=== PATIENT | female | born 1970 | race African-American/Black ===

== ENCOUNTER → 2018-10-14 08:44 | Outpatient (CLI) | payer MEDICARE | END | disposition home or self-care (01) | LOC: D.CT 09-16 09:00 | DX: N18.6 End stage renal disease (principal); Z99.2 Dependence on renal dialysis ==

== ENCOUNTER → 2018-12-09 10:57 | Outpatient (CLI) | payer MEDICARE | END | disposition home or self-care (01) | LOC: D.CT 12-06 10:45 | PROVIDERS: ATTEND Surgery | DX: N18.6 End stage renal disease (principal); Z99.2 Dependence on renal dialysis ==

== ENCOUNTER 2018-12-30 10:17 | Outpatient (CLI) | payer MEDICARE, MEDICAID ==
[~2018-12-30] VITALS: Ht 162.6 cm; Wt 95.5 kg
--- NOTE | ~2018-12-30 | HEMODYNAMI ---
PATIENT:CARA GAMA MEDICAL RECORD: [id number] : 70 LOCATION:[facility] ADMISSION DATE: 12/30/18 Generatedon:12/30/201816:02 Patient name: CARA GAMA Patient #: [id number] SSN: D OB: 1970 Date of study: 12/30/2018 Page: Of Hemodynamic Procedure Report Patient Data Patient Demographics Procedure consent was obtained First Name: CARA Gender: Female Last Name: NATAN : 1970 Patient #: [id number] Age: 48 year(s) Race: Black Additional ID: [id number] Contact details Address: [address] [place] [address] State: [place] City: [place] Zip code: [address] Past Medical History Allergies: No known allergies Admission Admission Data Admission Date: 12/30/2018 Admission Time: 10:17 Procedure Procedure Types Cath Procedure Peripheral Cath Diagnostic Procedure Abd/Extremity Extremities Bilat Upper Extremity Art Venography Extremity Bilat Venogram Lower Ext Procedure Description Procedure Date Procedure Date: 12/30/2018 Procedure Start Time: 13:15 Procedure End Time: 16:02 Procedure Staff Name Function Guillaume Howard MD Performing Physician Mk Wade RT Monitor RAGHAV KINNEY RT Scrub Chema Looney RT Scrub Jaymie Rubio RN Nurse Procedure Data Cath Procedure Fluoroscopy Diagnostic fluoroscopy Total fluoroscopy Time: time: 44.3 min 44.3 min Diagnostic fluoroscopy Total fluoroscopy dose: dose: 1504 mGy 1504 mGy Contrast Material Contrast Material Type Amount (ml) Isovue 300 125 Diagnostic catheters Device Type Used For End Catheter Placement Merit Impress Matson Abdominal 5Fr 125CM catheter aortogram ([id number]) Merit Impress KA2 5Fr Ventriculography 65CM catheter (42448YC4) Procedure Medications Medication Administration Route Dosage Heparin Flush Bag added to field 3 bags (1000units/500ml NS) Lidocaine 1% added to field 20 Versed I.V. 1 mg Fentanyl I.V. 50 mcg Benadryl I.V. 25 mg Ancef (1Gm/50ml NS) I.V.P.B 1 g Versed I.V. 1 mg Fentanyl I.V. 50 mcg Heparin Bolus I.V. 5000 units Versed I.V. 1 mg Fentanyl I.V. 50 mcg Heparin Bolus I.V. 5000 units Versed I.V. 1 mg Fentanyl I.V. 50 mcg Hemodynamics Rest Heart Rate: 64 (bpm) Snapshots Pre Cath Intra NCS Post Cath Vital Signs Time Heart Resp SPO2 etCO2 NIBP (mmHg) Rhythm Pain Sedation Rate (ipm) (%) (mmHg) Status Level (bpm) 12:37:37 67 18 0 104/67(88) NSR 0 (11) 10(A) , No pain 12:41:41 65 28 100 29.4 107/85(102) NSR 0 (11) 10(A) , No pain 12:45:44 68 12 21.1 No Cuff NSR 0 (11) 10(A) , No pain 12:48:51 67 20 30.9 105/56(91) NSR 0 (11) 10(A) , No pain 12:52:56 66 14 100 28.6 116/54(81) NSR 0 (11) 10(A) , No pain 12:57:10 66 17 100 29.4 125/44(79) NSR 0 (11) 10(A) , No pain 13:01:26 64 15 100 30.8 109/44(77) NSR 0 (11) 9(A) , No pain 13:05:32 65 20 100 30.1 122/62(88) NSR 0 (11) 9(A) , No pain 13:09:40 69 20 100 25.6 114/61(81) NSR 0 (11) 9(A) , No pain 13:13:50 70 18 100 27.1 112/51(79) NSR 0 (11) 8(A) , No pain 13:18:00 72 13 100 32.4 107/51(81) NSR 0 (11) 8(A) , No pain 13:22:08 70 14 100 33.9 108/50(71) NSR 0 (11) 8(A) , No pain 13:26:17 70 14 100 33.1 105/50(78) NSR 0 (11) 8(A) , No pain 13:30:29 70 16 100 30.1 110/42(67) NSR 0 (11) 8(A) , No pain 13:34:44 71 13 100 26.3 114/30(81) NSR 0 (11) 8(A) , No pain 13:38:57 71 12 100 31.6 110/47(78) NSR 0 (11) 8(A) , No pain 13:43:11 69 16 100 30.1 97/38(63) NSR 0 (11) 8(A) , No pain 13:47:13 87 17 100 27.8 108/55(71) NSR 0 (11) 8(A) , No pain 13:51:27 69 19 100 26.3 113/35(70) NSR 0 (11) 8(A) , No pain 13:55:43 75 11 100 30.1 98/28(61) NSR 0 (11) 8(A) , No pain 13:59:51 67 18 100 33.1 89/47(71) NSR 0 (11) 8(A) , No pain 14:03:53 64 16 100 27.8 107/53(91) NSR 0 (11) 8(A) , No pain 14:08:52 68 17 100 27.8 Measuring NSR 0 (11) 8(A) , No pain 14:09:16 69 14 100 28.6 98/41(76) NSR 0 (11) 8(A) , No pain 14:13:24 65 11 100 31.6 103/46(83) NSR 0 (11) 8(A) , No pain 14:17:32 67 14 100 29.3 100/51(84) NSR 0 (11) 8(A) , No pain 14:21:40 67 16 100 27.8 108/47(79) NSR 0 (11) 8(A) , No pain 14:25:52 67 18 100 28.6 106/47(73) NSR 0 (11) 8(A) , No pain 14:30:02 66 15 100 29.3 111/50(79) NSR 0 (11) 8(A) , No pain 14:34:16 66 16 100 27 121/43(83) NSR 0 (11) 8(A) , No pain 14:38:32 64 14 100 28.6 117/45(86) NSR 0 (11) 8(A) , No pain 14:42:46 65 16 100 30.1 127/51(82) NSR 0 (11) 8(A) , No pain 14:47:04 65 13 100 30.1 125/47(83) NSR 0 (11) 8(A) , No pain 14:52:03 66 17 100 30.8 Measuring NSR 0 (11) 8(A) , No pain 14:52:36 67 14 100 29.3 120/45(73) NSR 0 (11) 8(A) , No pain 14:56:49 66 14 100 27.8 123/52(81) NSR 0 (11) 8(A) , No pain 15:01:05 65 15 100 32.3 108/53(87) NSR 0 (11) 8(A) , No pain 15:05:18 64 13 100 30.8 117/45(89) NSR 0 (11) 8(A) , No pain 15:09:34 67 15 100 30.1 110/47(76) NSR 0 (11) 8(A) , No pain 15:13:45 64 10 100 26.3 111/52(74) NSR 0 (11) 8(A) , No pain 15:17:57 63 15 100 28.6 118/47(82) NSR 0 (11) 8(A) , No pain 15:22:14 64 14 100 28.6 109/46(79) NSR 0 (11) 8(A) , No pain 15:26:23 66 18 29.3 111/54(80) NSR 0 (11) 8(A) , No pain 15:30:37 63 15 29.3 112/44(67) NSR 0 (11) 8(A) , No pain 15:34:49 65 14 100 29.3 114/52(79) NSR 0 (11) 8(A) , No pain 15:38:55 65 18 100 24.8 130/74(93) NSR 0 (11) 8(A) , No pain 15:43:13 64 17 100 31.6 122/52(81) NSR 0 (11) 8(A) , No pain 15:47:33 65 16 100 24.8 111/29(74) NSR 0 (11) 8(A) , No pain 15:51:45 66 14 100 31.6 108/51(74) NSR 0 (11) 8(A) , No pain 15:55:55 32.3 106/55(79) NSR 0 (11) 8(A) , No pain 16:00:25 0 No Cuff NSR 0 (11) 8(A) , No pain Medications Time Medication Route Dose Verified Delivered Reason Notes Eff ectiveness by by 12:48:21 Heparin Flush added 3 Guillaume Galaviz used for Bag to bags Anita Howard procedure (1000units/500ml field MD [place] NS) 12:48:33 Lidocaine 1% added 20ml Guillaume Galaviz for local to vial Anita Howard anesthetic field MD [place] 13:00:02 Benadryl I.V. 25 mg Guillaume Coon for Anita Rubio RN sedation 13:09:49 Versed I.V. 1 mg Guillaume Coon for Anita Rubio RN sedation 13:10:01 Fentanyl I.V. 50 Guillaume Coon for [facility] Anita Rubio RN sedation 13:12:23 Ancef (1Gm/50ml I.V.P.B 1 g Guillaume Jaymie Per NS) Anita Rubio RN physician 13:33:17 Versed I.V. 1 mg Guillaume Coon for Anita Rubio RN sedation 13:33:26 Fentanyl I.V. 50 Guillaume Jaymie for mcg Anita Rubio RN sedation 13:36:11 Heparin Bolus I.V. 5000 Guillaume Jaymie Per units Anita Rubio RN physician 14:50:44 Versed I.V. 1 mg Guillaume Riojasody for Anita Mosquerar RN sedation 14:50:56 Fentanyl I.V. 50 Guillaume Jaymie for mcg Anita Mosquerar RN sedation 15:09:49 Heparin Bolus I.V. 5000 Guillaume Jaymie Per units Anita Rubio RN physician 15:33:12 Versed I.V. 1 mg Guillaume Riojasody for Anita Rubio RN sedation 15:33:23 Fentanyl I.V. 50 Guillaume Coon for [facility] Anita Rubio RN sedation MD Procedure Log Time Note 12:35:51 Chema Stephenjil RT (R) (CV) sent for patient. Start room use. 12:36:02 Time tracking: Regular hours (M-F 7:00 - 5:00) 12:36:07 Plan of Care:Hemodynamics will remain stable., Cardiac rhythm will remain stable., Comfort level will be maintained., Respiratory function will remain adequate., Patient/ family verbilizes understanding of procedure., Procedure tolerated without complication., Recovers from procedure without complications.. 12:36:11 Use device set IR Diagnostic 12:36:12 ACIST Syringe (96212) opened to sterile field. 12:36:12 ACIST Hand Control (37379) opened to sterile field. 12:36:12 ACIST Manifold (04266) opened to sterile field. 12:36:13 Bag Decanter (2002S) opened to sterile field. 12:36:13 Sterile Angiographic Pack opened to sterile field. 12:36:16 Tegaderm 4 x 4 (1626W) opened to sterile field. 12:36:24 Patient received from Outpatients to IR Alert and oriented. Tansferred to table in Supine position. 12:36:25 Correct patient and procedure confirmed by team. 12:36:28 Signed procedure consent form obtained from patient. 12:36:30 ECG and BP/O2 sat monitors applied to patient. 12:36:30 Vital chart was started 12:36:31 Baseline sample Acquired. 12:36:32 Full Disclosure recording started 12:36:33 - 12:36:36 H&P Date Dictated: 12/30/2018 H&P Addendum completed by physician on day of procedure. (MUST COMPLETE FOR ALL OUTPATIENTS). 12:36:36 Pre-procedure instructions explained to patient. 12:36:37 Pre-op teaching completed and patient verbalized understanding. 12:36:38 Family in waiting room. 12:36:40 Patient NPO since Midnight. 12:36:52 ----Pre-sedation anethsthesia assessment.---- 12:36:55 Previous problem with sedation/anesthesia? No ? 12:36:56 Snore? Yes 12:37:00 Patient diabetic? Yes. 12:37:02 If diabetic: On Metformin? No 12:37:04 Sleep apnea? No 12:37:06 Deviated septum? No 12:37:07 Opens mouth fully? Yes 12:37:09 Sticks out tongue? Yes 12:37:15 Airway obstruction? No ? 12:37:16 Dentures? No ? 12:37:17 - 12:37:21 Pre procedure: right dorsailis pedis pulse Doppler 12:37:25 Pre procedure: right posterior tibial pulse Doppler 12:37:27 Sharps counted by scrub and verified by R.N. 12:37:28 Alarms reviewed by R. N. 12:37:33 Right groin area was prepped with chlora-prep and draped in sterile fashion 12:46:14 IV started by Jaymie Rubio RN inright wrist with a 22 gauge IV cathete r with 0.9% NaCl at KVO. 12:48:21 Heparin Flush Bag (1000units/500ml NS) 3 bags added to field was administered by Guillaume Howard MD; used for procedure; 12:48:22 Patient allergic to hydocodone. 12:48:33 Lidocaine 1% 20ml vial added to field was administered by Guillaume griffin MD; for local anesthetic; 12:49:25 Is the patient allergic to Iodine/contrast media? No. 12:50:32 Is patient on blood thinner?Yes has not had any for 4 days. 13:00:02 Benadryl 25 mg I.V. was administered by Jaymie Rubio RN; for sedation; 13:04:25 SHEATH 5FR Buna (LJS898) opened to sterile field. 13:05:15 BENTSON 145cm wire (R21412) opened to sterile field. 13:05:29 Physician arrived 13:05:30 --------ALL STOP TIME OUT------ 13:05:31 Final Timeout: patient, procedure, and site verified with staff and physician. All members of the team are in agreement. 13:05:38 Right groin site verified by team. 13:06:00 Sedation plan: IV Moderate Sedation Medication:Versed, Fentanyl, Lidocaine 13:07:39 Procedure started. 13:09:49 Versed 1 mg I.V. was administered by Jaymie Rubio RN; for sedation; 13:10:01 Fentanyl 50 mcg I.V. was administered by Jaymie Rubio RN; for sedation ; 13:12:23 Ancef (1Gm/50ml NS) 1 g I.V.P.B was administered by Jaymie Rubio RN; Per physician; 13:15:00 Local anesthetic to right femoral vein with Lidocaine 1% by Guillaume Howard MD.INITIAL ACCESS ONLY 13:16:09 COOK SHEATH 6FR RAABE 70CM (X47309) opened to sterile field. 13:16:29 Trailblazer 0.035 90cm catheter (ASC-035-090) opened to sterile field. 13:16:29 MONSON 260 wire (Y56725) opened to sterile field. 13:19:46 AMPLATZ Super Stiff 75cm wire ([id number]) opened to sterile field. 13:20:58 GLIDE WIRE .035 180CM STRAIGHT (MO9616) opened to sterile field. 13:22:59 Access obtained with 4Fr micropunture. 13:24:05 A 5 [place] sheath is placed in the right femeral vein. 13:24:46 0.35 straight glidewire wire advanced along with the trailblazer cath. 13:26:02 MAGIC TORQUE 180cm 0.035 wire ([id number]) opened to sterile field. 13:27:51 ROADRUNNER .035 145 glide wire (T74860) opened to sterile field. 13:30:51 The glidewire is removed and the roadrunner wire is used to advance the trailblazer into the vena cava. 13:33:17 Versed 1 mg I.V. was administered by Jaymie Ramiro RN; for sedation; 13:33:26 Fentanyl 50 mcg I.V. was administered by Jaymie Rubio RN; for sedation ; 13:34:13 INFLATOR BasixTOUCH (ZB6698) opened to sterile field. 13:36:11 Heparin Bolus 5000 units I.V. was administered by Jaymie Rubio RN; Per physician; 13:36:45 Inflate balloon Inflation number: 1 A Evercross 6 x 100 x 135 Balloon ([id number]) was prepped and advanced across the Undefined lesion in the iliac vein, then inflated to 8 MARY for 0:30 (min:sec). 13:37:03 AMPLATZ Super stiff Straight 260cm wire ([id number]) opened to sterile field. 13:44:59 The 5 [place] sheath is exchanged for the 6 [place] 70 cm sheath. 13:59:28 the trailblazer and bentson wire are then advanced into the superior vena cava. 14:01:23 CXI Catheter 90cm (E30321) opened to sterile field. 14:02:05 The trailblazer is replaced with a cxi 90 cm cath. 14:06:47 Micropuncture VSI 4FR kit opened to sterile field. 14:07:08 Local anesthetic to right femoral artery with Lidocaine 1% by Guillaume Howard MD.ADDITIONAL ACCESS 14:09:54 the 4 [place] micro stick system is used to access the rt femeral artery and the 5 [place] sheath is inserted into the right femeral artery. 14:10:54 A [facility] Matson 5Fr 125CM catheter ([id number]) was advanced over the wire and used for superior thoracic vessels arteriogram. 14:22:59 an arteriogram of entire right arm is made. 14:33:16 An arteriogram of the entire left arm is made. 14:33:49 EXOSEAL 5Fr (EX500) opened to sterile field. 14:36:39 The 5 cost[place]ican arterial sheath is removed and the 5 cost[place]ican exoseal is deployed, pressure applied to hemostasis. 14:50:44 Versed 1 mg I.V. was administered by Jaymie Rubio RN; for sedation; 14:50:56 Fentanyl 50 mcg I.V. was administered by Jaymie Rubio RN; for sedation ; 14:57:07 Additional access is need for both arms therefore both arms are prepped and drapped in sterile fashion. 14:58:44 additional lidocaine is administed at local site by Dr. Howard. 1 % lidocaine is used to the left arm. 15:00:23 the 4 [place] micro puncture set is used to access the left brachial vein. 15:01:35 SHEATH 6FR Destination (RSR01) opened to sterile field and used to further access the left arm. 15:03:13 ROADRUNNER FIRM 260CM glide wire (Q16379) opened to sterile field. 15:04:14 A [place] Impress KA2 5Fr 65CM catheter (45588YO8) was advanced over the wire and used for Venography. 15:09:17 An injection is made in the SVC. 15:09:49 Heparin Bolus 5000 units I.V. was administered by Jaymie Rubio RN; Per physician; 15:09:58 The K2 cath is removed and replaced with the 6x60cm evercross balloon. The balloon was not inflated and removed. 15:16:26 GLIDE WIRE MERIT Angled 260cm ([id number]) opened to sterile field. 15:33:12 Versed 1 mg I.V. was administered by Jaymie Rubio RN; for sedation; 15:33:23 Fentanyl 50 mcg I.V. was administered by Jaymie Rubio RN; for sedation ; 15:34:35 the 6 costa [place]ican destination sheath is removed from the left brachial vein and pressure held until hemostatis achieved. 15:35:22 The venous sheath in the right groin is exchanged for a 7 cost[place]ican brite tip 15:35:43 Cordis 7Fr BRITE TIP 11cm sheath opened to sterile field. 15:40:01 Balloon advanced to the RIGHT ILIAC VEIN AND IT IS A 7 GABONESE [id number] BALLOON BY ELSIE. INFLATED TO 10ATMS FOR 60 SECONDS. 15:43:10 A SECOND INFLATION IS MADE WITH SAME BALLOON 10ATMS FOR 30 SECONDS. 15:44:10 Everything is removed and pressure is held until hemostasis. 15:44:17 Procedure ended.(Physican Out) 15:48:46 Inflate balloon Inflation number: 1 A Evercross 12 x 40 x 135 ([id number]) was prepped and advanced across the Undefined1, then inflated. 15:58:36 Fluoroscopy time 44.30 minutes. :58:44 Fluoroscopy dose: 1504 mGy 15:58:44 Flurop Dose total: 1504 15:58:55 Contrast amount:Isovue 300 125ml. 15:58:59 Sharps counted by scrub and verified by R.N. 15:59:34 Post-op/insertion site Right Femoral vein and artery dressed using a 4 x 4 and Tegaderm. 16:00:56 post-op /insertion site left brachial vein dressed using a 4x4 and tegaderm. 16:01:37 Post Procedure Pulses reassessed and unchanged 16:01:42 Post procedure instruction explained to patient.Patient verbalizes understanding. 16:01:44 Patient needs reinforcement of post procedure teaching. 16:01:47 Procedure and supply charges have been captured, reviewed, submitted an d are correct. 16:01:51 See physician's report for complete and final results. 16:01:57 Report given to Outpatients. 16:02:04 Patient transfered to Outpatients with Stretcher. 16:02:11 Procedure ended. 16:02:11 Full Disclosure recording stopped 16:02:46 Vital chart was stopped Intervention Summary Intervention Notes Time ActionType Lesion and Equipment Used Action# Pressure Duration Attributes 13:36:45 Inflate Undefined Evercross 6 x 1 0 00:00 balloon lesion 1 on 100 x 135 undefined Balloon graft 1 ([id number]) 15:48:46 Inflate Undefined1 Evercross 12 x 1 0 00:00 balloon 40 x 135 ([id number]) Device Usage Item Name Manufacture Quantity Catalog Number Hospital Part Current Minimal Lot# / Charge Number Stock Stock Serial# Code ACIST Syringe Acist 1 31393 815676 705676 516693 20 (92287) Medical Systems Inc ACIST Hand Acist 1 45700 653388 198003 143714 5 Control (09609) Medical Systems Inc ACIST Manifold Acist 1 30983 988002 490576 053267 5 (22022) Medical Systems Inc Bag Decanter Microtek 1 2001S 557933 83732 318023 5 (2001S) Medical Inc. Sterile Cardinal 1 [id number] 293033 197240 5 Angiographic Health Pack Tegaderm 4 x 4 3M 1 1626W 703012 115258 233161 5 (1626W) SHEATH 5FR Terumo 1 IUH561 136301 394709 230701 5 Buna (QGY951) BENTSON 145cm Cook Medical 1 W02865 350531 836870 5 wire (C91741) COOK SHEATH 6FR Cook Medical 1 U12660 755393 55251 688501 1 [id number] RAABE 70CM (C07983) Trailblazer Medtronic 1 ASC-035-090 963158 7748538 861787 5 0.035 90cm catheter (ASC-035-090) MONSON 260 wire Cook Medical 1 S83123 739535 20432 621467 5 3175750 (N87131) AMPLATZ Super [place] 1 [id number] 937568 384981 912141 5 [id number] Stiff 75cm wire Scientific ([id number]) GLIDE WIRE .035 Terumo 1 HB6346 005815 169265 5 180CM STRAIGHT (SC2107) MAGIC TORQUE [place] 1 [id number] 331937 369481 784194 1 180cm 0.035 Scientific wire ([id number]) ROADRUNNER .035 Cook Medical 1 L79808 081105 138319 062037 5 7623032 145 glide wire (V10474) INFLATOR Merit 1 UP8777 431692 872496 362745 5 BasixTOGlio Medical (LG3440) Evercross 6 x Medtronic 1 [id number] 326463 860374 499191 5 100 x 135 Balloon ([id number]) AMPLATZ Super [place] 1 [id number] 294328 44588 788967 5 [id number] stiff Straight Scientific 260cm wire ([id number]) CXI Catheter Cook Medical 1 R41776 650755 859098 707342 5 2523017 90cm (H47866) Micropuncture VSI VASCULAR 1 7266V 916714 557080 5 VSI 4FR kit SOLUTIONS Merit Impress Merit 1 [id number] 431024 707139 882177 5 Matson 5Fr Medical 125CM catheter ([id number]) EXOSEAL 5Fr Cardinal 1 EX500 440889 119121 449306 10 [id number] (EX500) Health SHEATH 6FR Terumo 1 RSR01 983417 73615 030287 5 Destination (RSR01) ROADRUNNER FIRM Cook Medical 1 W17871 488075 294398 5 260CM glide wire (Q74154) Merit Impress Merit 1 27788YO7 220538 082020 5 KA2 5Fr 65CM Medical catheter ([id number]) GLIDE WIRE Merit 1 [id number] 077742 244013 708111 5 [id number] MERIT Angled Medical 260cm ([id number]) Cordis 7Fr Cardinal 1 727567N 471757 523841 5 BRITE TIP 11cm Health sheath Evercross 12 x Medtronic 1 [id number] 832377 211846 567568 5 [id number] 40 x 135 ([id number]) Signature Audit [place] Stage Time Signature Unsigned Intra-Procedure 12/30/2018 Mk 4:02:41 PM Sheri CHENG(Tai)(CV) Signatures Monitor : Mk Signature : Sheri RT Date : Time : [address] [address]
[2018-12-30 10:53] LABS: ANION GAP 24.2 mmol/L (8-16); CALCIUM 9.8 mg/dL (8.5-10.1); CARBON DIOXIDE 22.8 mmol/L (21.0-32.0)
[2018-12-30 11:20] LABS: BASOPHILS 0.5 % (0-2); EOSINOPHILS 0 % (0-7); HEMATOCRIT 34.3 % (36.0-48.0); HEMOGLOBIN 11.7 g/dL (12-16); MCH 31.9 pg (26.0-34.0); MCHC 34.1 g/dL (31.0-37.0); MCV 93.5 fL (80.0-100.0); MEAN PLATELET VOLUME 10.7 fL (7.4-10.4); MONOCYTES 0 % (2-11); NEUTROPHILS 8.5 % (40-80); PLATELET COUNT 146 10x3/uL (130-400); RBC 3.67 10x6/uL (4.00-5.40); RDW 15.2 % (11.5-14.5); WBC 5.7 10x3/uL (4.8-10.8)
[2018-12-30] MEDS ORDERED: SENSIPAR30 MG PO (11:34)
[2018-12-30] MEDS ORDERED: GLYBURIDE2.5 MG PO (11:35)
[2018-12-30] MEDS ORDERED: RENVELA800 MG PO (11:36)
[2018-12-30] MEDS ORDERED: MIDODRINE HCL2.5 MG PO (11:36)
[2018-12-30 11:40] LABS: INR 1.17 (0.85-1.17); PROTIME 14.3 SECONDS (11.6-15.0)
[2018-12-30 11:42] VITALS: BP 89/53; Ht 162.6 cm; Wt 95.5 kg
--- NOTE | 2018-12-30 16:33 | NUR ---
1600. TO ROOM FLAT HOB ELEVATED 5 DEGREES. LEGS STRAIGHT. SRG TO RIGHT GROIN CLEAN DRY AND INTACT, SOFT WITH TEGREDERM DRESSING OVER SITE WITH 2X2 UNDER TEGREDERM.DOPPLER PULSES. B/P TO LOWER RIGHT LEG. DRESSING TO LEFT UPPER ARM WITH A MAGDALENE SIZE SPOT OF BLOOD. AREA SOFT WITH 2X2 COVERED WITH TEGREDERM DRESSING. PT FALLS TO SLEEP EASILY. IV IN RIGHT ANT WRIST. FLUSHED WELL. REFUSED WATER. BP HIGH REAJUSTED CUFF AND B/P WNL OF PRE OP. INSTRUCTED PT THAT SHE WILL BE HERE UNTIL 7PM. NO FAMILY AT BEDSIDE.
--- NOTE | 2018-12-30 16:37 | NUR ---
1620 FAMILY MEMEBER AT BEDSIDE. NO CHANGE IN DRESSING OR VS
--- NOTE | 2018-12-30 18:21 | NUR ---
1800PT C/O BACK PAIN. REFUSED TO TURN ON SIDE. OFFERED PT WATER OR SOMETHING TO EAT. PT REFUSED. PT DIDNT REALIZE SHE HAD TO STAY UNTIL 7PM. PT LIVES A HOUR AND A HALF AWAY. SCANT AMT OF DRAINAGE TO RT GROIN. SMALL AMT OF DRAINAGE TO LEFT UPPER ARM.
--- NOTE | 2018-12-30 18:44 | NUR ---
184 IV REMOVED TO RIGHT ANT WRIST. PILLOWS UNDER KNEES TO HELP WITH BACK PAIN.SCANT AMT OF DRAINAGE TO LEFT GROIN.
== END 2018-12-30 19:05 | disposition home or self-care (01) ==
LOC: D.SP 10:17 → D.RAD 13:00 → D.SP 13:00
PROVIDERS: ATTEND Radiology Diagnostic Radiology
DX: I87.1 Compression of vein (principal); N18.6 End stage renal disease

== ENCOUNTER → 2019-01-27 14:30 | Outpatient (CLI) | payer MEDICARE ==
[2018-12-30 11:42] VITALS: BMI 36.1
[~2019-01-27 14:30] MED LIST: GLYBURIDE2.5 MG PO; MIDODRINE HCL2.5 MG PO; RENVELA800 MG PO; SENSIPAR30 MG PO
== END | disposition home or self-care (01) ==
LOC: D.US 14:30
PROVIDERS: ATTEND Surgery
DX: E04.1 Nontoxic single thyroid nodule (principal); R93.89 Abnormal findings on diagnostic imaging of other specified body structures

== ENCOUNTER 2019-02-21 06:37 | Day surgery (SDC) | payer MEDICARE ==
[~2019-02-21] VITALS: Ht 162.6 cm; Wt 93.2 kg
[2019-02-21 07:17] LABS: BASOPHILS 0.3 % (0-2); EOSINOPHILS 2.8 % (0-7); HEMATOCRIT 33.3 % (36.0-48.0); IMMATURE GRANULOCYTES 0.1 % (0-5); LYMPHOCYTES 17.5 % (15-50); MCV 93.8 fL (80.0-100.0); MEAN PLATELET VOLUME 10.1 fL (7.4-10.4); NEUTROPHILS 71.3 % (40-80); RBC 3.55 10x6/uL (4.00-5.40); RDW 13.9 % (11.5-14.5); WBC 7.7 10x3/uL (4.8-10.8)
[2019-02-21 07:23] LABS: PLATELET COUNT 188 10x3/uL (130-400)
[2019-02-21 07:56] LABS: ANION GAP 19.4 mmol/L (8-16); CALCIUM 9.6 mg/dL (8.5-10.1); CARBON DIOXIDE 22.9 mmol/L (21.0-32.0); CREATININE - SERUM 9.1 mg/dL (0.6-1.3); INR 1.23 (0.85-1.17); POTASSIUM - SERUM 4.3 mmol/L (3.5-5.1); PROTIME 14.9 SECONDS (11.6-15.0)
[2019-02-21 08:03] LABS: HCG SERUM NEGATIVE (NEGATIVE)
[2019-02-21 08:48] VITALS: BP 98/75
[2019-02-21 13:10] LABS: BASOPHILS 0.4 % (0-2); EOSINOPHILS 1.8 % (0-7); HEMATOCRIT 30.9 % (36.0-48.0); HEMOGLOBIN 10.2 g/dL (12-16); IMMATURE GRANULOCYTES 0.2 % (0-5); LYMPHOCYTES 27.2 % (15-50); MCH 31.3 pg (26.0-34.0); MCV 94.8 fL (80.0-100.0); MEAN PLATELET VOLUME 10.3 fL (7.4-10.4); MONOCYTES 8.5 % (2-11); NEUTROPHILS 61.9 % (40-80); PLATELET COUNT 171 10x3/uL (130-400); RBC 3.26 10x6/uL (4.00-5.40); RDW 14.1 % (11.5-14.5)
[2019-02-21 13:13] LABS: WBC 5.4 10x3/uL (4.8-10.8)
[2019-02-21] MEDS ORDERED: DILAUDID2 MG PO (17:03)
--- NOTE | 2019-02-21 17:25 | NUR ---
NO BRUIT OR THRILL TO NEW GRAFT IN RT GROIN. DR LAM NOTIFIED.
--- NOTE | 2019-02-21 17:38 | NUR ---
HEPARIN DRIP DOSE VERIFIED/ACKNOWLEDGED BY IRENE QUIROZ RN AT INITIATION
[2019-02-21 18:21] VITALS: BP 124/71
--- NOTE | 2019-02-21 18:35 | NUR ---
RECIVED FROM RR PER BED. TO ROOM 2133. IV TO LT SHOULDER WITH HEP AT 1000U/HR. HEMOSPLIT TO LT GROIN.
--- NOTE | 2019-02-21 19:30 | NUR ---
RECEIVED REPORT,WILL ASSUME CARE OF PT, PT DENIES ANY NEEDS, DRESSING TO L,[id number], BED IS LOW, SRX2, CALL LIGHT IN REACH, WILL CONTINUE PLAN OF CARE
[2019-02-21 20:00] VITALS: BP 99/55
[2019-02-22] VITALS: BP 102/53
--- NOTE | 2019-02-22 03:20 | NUR ---
SLEEPING, NO DISTRESS NOTICED, BED IS LOW, SRX2, CALL LIGHT IN REACH, FAMILY AT BEDSIDE, WILL CONTINUE PLAN OF CARE
[2019-02-22 04:00] VITALS: BP 84/44
[2019-02-22 05:47] LABS: BASOPHILS 0.1 % (0-2); EOSINOPHILS 1.2 % (0-7); HEMATOCRIT 29.6 % (36.0-48.0); HEMOGLOBIN 9.6 g/dL (12-16); IMMATURE GRANULOCYTES 0.1 % (0-5); MCH 30.6 pg (26.0-34.0); MCHC 32.4 g/dL (31.0-37.0); MCV 94.3 fL (80.0-100.0); MEAN PLATELET VOLUME 10.4 fL (7.4-10.4); MONOCYTES 8.1 % (2-11); NEUTROPHILS 77.5 % (40-80); PLATELET COUNT 186 10x3/uL (130-400); RBC 3.14 10x6/uL (4.00-5.40); RDW 14.2 % (11.5-14.5); WBC 6.7 10x3/uL (4.8-10.8)
[2019-02-22 05:54] LABS: APTT 66.3 SECONDS (22.8-39.4); INR 1.4 (0.85-1.17); PROTIME 16.6 SECONDS (11.6-15.0)
[2019-02-22 06:11] VITALS: BP 124/71; BMI 35.2
[2019-02-22 06:38] LABS: ANION GAP 22.4 mmol/L (8-16); CALCIUM 8.5 mg/dL (8.5-10.1); CARBON DIOXIDE 19.3 mmol/L (21.0-32.0); CREATININE - SERUM 10.4 mg/dL (0.6-1.3); POTASSIUM - SERUM 4.7 mmol/L (3.5-5.1)
--- NOTE | 2019-02-22 07:00 | NUR ---
RECEIVED REPORT. ASSUMED CARE OF PATIENT. RESTING WITH EYES CLOSED, EASILY AROUSED. RESP EVEN AND UNLABORED. NO DISTRESS. CALL LIGHT WITHIN REACH. RIGHT AV GRAFT IN THIGH WITH THRILL BUT UNABLE TO HEAR BRUIT. CONTINUES ON HEPARIN DRIP.
--- NOTE | 2019-02-22 08:33 | NUR ---
MEDICATIONS ENTERED DO NOT MATCH RECENT PRESCRIPTIONS FILLED. VERIFIED MEDICATIONS WITH PATIENT. PATIENT INSTRUCTED THE NEED TO GET UP AND AMBULATE THIS AM. PATIENT VERBALZIED UNDERSTANDING.
[2019-02-22 10:08] VITALS: BP 97/52
[2019-02-22 12:01] VITALS: Ht 162.6 cm; Wt 93.2 kg
--- NOTE | 2019-02-22 12:39 | NUR ---
HEPARIN DRIP OFF AT THIS TIME.
--- NOTE | 2019-02-22 14:25 | NUR ---
PATIENT LEFT UNIT VIA WHEELCHAIR FOR DIALYSIS AT THIS TIME. ON UNIT FOR ROUNDS. PATIENT IN NO DISTRESS UPON LEAVING UNIT.
--- NOTE | 2019-02-22 18:29 | NUR ---
PATIENT RETURNED FROM DIALYSIS. 1.5 LITERS REMOVED. PM MEDICATIONS ADMINISTERED. NO DISTRESS. SITTING TO SIDE OF BED AT THIS TIME.
--- NOTE | 2019-02-22 19:36 | NUR ---
RECEIVED REPORT, WILL ASSUME CARE OF PT, SITTING UP ON SIDE OF BED, DENIES ANY NEEDS, CALL LIGHT IN REACH, WILL CONTINUE PLAN OF CARE, FAMILY AT BEDSIDE
[2019-02-22 20:00] VITALS: BP 106/52
[2019-02-23] VITALS: BP 97/41
--- NOTE | 2019-02-23 03:18 | NUR ---
I have reviewed this patient and I concur with the Shift Assessment completed by the Licensed Practical Nurse today this shift.
[2019-02-23 04:00] VITALS: BP 84/42
--- NOTE | 2019-02-23 07:10 | NUR ---
REPORT RECEVIED FROM COOKER CASING AND PATIENT CARE ASSUMED. PATIENT LAYING IN BED ON LT SIDE WITH EYES CLOSED AND BREATHING EVENLY. PATIENT IS STABLE AND VSS. WILL CONTINUE WITH PLAN OF CARE. SR UP X 2 BED IN LOW POSITION AND CALL LIGHT IN REACH.
[2019-02-23 08:51] VITALS: BP 162/68
[2019-02-23 10:29] LABS: BASOPHILS 0.5 % (0-2); EOSINOPHILS 4.1 % (0-7); HEMATOCRIT 28.2 % (36.0-48.0); HEMOGLOBIN 9.1 g/dL (12-16); IMMATURE GRANULOCYTES 0.3 % (0-5); MCH 30.7 pg (26.0-34.0); MCHC 32.3 g/dL (31.0-37.0); MCV 95.3 fL (80.0-100.0); MEAN PLATELET VOLUME 10.2 fL (7.4-10.4); MONOCYTES 7.6 % (2-11); NEUTROPHILS 72.5 % (40-80); PLATELET COUNT 186 10x3/uL (130-400); RBC 2.96 10x6/uL (4.00-5.40); RDW 14.3 % (11.5-14.5); WBC 6.6 10x3/uL (4.8-10.8)
[2019-02-23 10:48] LABS: CALCIUM 9.1 mg/dL (8.5-10.1); CREATININE - SERUM 8.8 mg/dL (0.6-1.3)
[2019-02-23 10:51] LABS: ANION GAP 18.6 mmol/L (8-16); CARBON DIOXIDE 24.2 mmol/L (21.0-32.0); POTASSIUM - SERUM 3.8 mmol/L (3.5-5.1)
[2019-02-23] MEDS ORDERED: ELIQUIS2.5 MG PO (11:57)
[2019-02-23 12:07] VITALS: BP 102/56
--- NOTE | 2019-02-23 14:17 | NUR ---
ORDERS RECEIVED FOR DC. PATIENT IS STABLE AND VSS. PATIENT DENIES ANY NEEDS OR PAIN. LT AND RT GROIN DRSG C/D/I. WRITTEN AND VERBAL DC INSTRUCTIONS GIVEN TO PATIENT AND . BOTH VERBALIZED UNDERSTANDING AND PATIENT SIGNED DC INSTRUCTIONS. PATIENT TAKEN IN WC BY HOSPITAL PERSONNEL TO FRONT DOOR AND PRIVATE VEHICLE DRIVEN BY .
== END 2019-02-23 14:23 | disposition home or self-care (01) ==
LOC: D.M2 06:37 → D.OPS 06:37 → D.M2 16:57 → D.OPS 02-23 14:23
PROVIDERS: Surgery; ATTEND Internal Medicine
DX: T82.9XXA Unspecified complication of cardiac and vascular prosthetic device, implant and graft, initial encounter (principal); Y83.9 Surgical procedure, unspecified as the cause of abnormal reaction of the patient, or of later complication, without mention of misadventure at the time of the procedure; E11.22 Type 2 diabetes mellitus with diabetic chronic kidney disease; N18.6 End stage renal disease; I82.291 Chronic embolism and thrombosis of other thoracic veins

== ENCOUNTER → 2019-04-14 10:27 | Outpatient (CLI) | payer MEDICARE ==
[2019-02-22 12:01] VITALS: BMI 35.2
[~2019-04-14 10:27] MED LIST changes: +DILAUDID2 MG PO; +ELIQUIS2.5 MG PO
== END | disposition home or self-care (01) ==
LOC: D.US 03-28 10:00 → D.CT 03-28 10:00
PROVIDERS: ATTEND Surgery
DX: N18.6 End stage renal disease (principal)

== ENCOUNTER 2019-04-28 10:32 | Outpatient (CLI) | payer MEDICARE ==
[~2019-04-28] VITALS: Ht 162.6 cm; Wt 94.8 kg
--- NOTE | ~2019-04-28 | HEMODYNAMI ---
PATIENT:CARA GAMA MEDICAL RECORD: [id number] : 70 LOCATION:[facility] ADMISSION DATE: 04/28/19 Generatedon:04/28/201915:01 Patient name: CARA GAMA Patient #: [id number] SSN: D OB: 1970 Date of study: 04/28/2019 Page: Of Hemodynamic Procedure Report Patient Data Patient Demographics Procedure consent was obtained First Name: CARA Gender: Female Last Name: NATAN : 1970 Middle Initial: L Age: 48 year(s) Patient #: [id number] Race: Black Additional ID: [id number] Contact details Address: [place] [address] State: [place] City: [place] Zip code: [address] Past Medical History Allergies Allergen Reaction Date Comments Reported Other allergy 04/28/2019 hydrocodone Admission Admission Data Admission Date: 04/28/2019 Admission Time: 10:32 Procedure Procedure Types Cath Procedure Peripheral Cath Diagnostic Procedure Abd/Extremity Extremities Right Lower Ext Arterio Procedure Description Procedure Date Procedure Date: 04/28/2019 Procedure Start Time: 13:51 Procedure Staff Name Function Chema Looney RT Scrub Guillaume Howard MD Performing Physician Jaymie Rubio RN Nurse Loyda Samuels RN Nurse RAGHAV KINNEY RT Monitor Procedure Data Cath Procedure Fluoroscopy Diagnostic fluoroscopy Total fluoroscopy Time: 9.6 time: 9.6 min min Contrast Material Contrast Material Type Amount (ml) Isovue 300 80 Entry Location Entry Primary Successful Side Size Upsize Upsize Entry Closure Salazar ccessful Closure Location (Fr) 1 (Fr) 2 (Fr) Remarks Device Remarks Femoral Left 5 Fr 6 Fr 6 Fr Mynx Television Picture Tube Rebuilder artery Long Short 6Fr/7Fr Femoral Right 5 Fr Manual artery Compression Diagnostic catheters Device Type Used For End Catheter Placement DIAGNOSTIC IMT 5Fr Catheter ([id number]) Procedure Medications Medication Administration Route Dosage Heparin Flush Bag added to field 3 bags (1000units/500ml NS) Lidocaine 1% added to field 20 Zofran I.V. 4 mg Fentanyl I.V. 50 mcg Versed I.V. 1 mg Vancomycin I.V.P.B 1 g Fentanyl I.V. 25 mcg Versed I.V. 0.5 mg Heparin Bolus I.V. 5000 units Versed I.V. 0.5 mg Fentanyl I.V. 25 mcg Fentanyl I.V. 50 mcg Hemodynamics Rest Heart Rate: 70 (bpm) Snapshots Pre Cath Intra NCS Post Cath Vital Signs Time Heart Resp SPO2 etCO2 NIBP (mmHg) Rhythm Pain Sedation Rate (ipm) (%) (mmHg) Status Level (bpm) 13:26:21 71 14 33 144/87(117) NSR 0 (11) 10(A) , No pain 13:30:45 69 19 100 37.5 141/79(101) NSR 0 (11) 10(A) , No pain 13:34:59 71 14 100 32.3 132/81(102) NSR 0 (11) 10(A) , No pain 13:39:17 69 12 100 32.3 133/76(98) NSR 0 (11) 10(A) , No pain 13:43:35 65 12 100 31.5 134/80(100) NSR 0 (11) 10(A) , No pain 13:47:53 66 11 100 21 131/80(100) NSR 0 (11) 10(A) , No pain 13:52:05 72 18 100 30 143/88(116) NSR 0 (11) 8(A) , No pain 13:56:25 68 13 100 37.5 133/73(102) NSR 0 (11) 8(A) , No pain 14:00:43 69 8 100 36.8 131/74(103) NSR 0 (11) 8(A) , No pain 14:04:59 71 1 100 33.7 138/78(102) NSR 0 (11) 8(A) , No pain 14:09:19 70 100 37.5 132/73(105) NSR 0 (11) 8(A) , No pain 14:13:41 69 13 100 36.7 118/57(94) NSR 0 (11) 8(A) , No pain 14:17:53 72 16 100 29.2 135/76(99) NSR 0 (11) 8(A) , No pain 14:22:11 74 15 100 33 130/77(107) NSR 0 (11) 8(A) , No pain 14:26:27 69 100 37.5 125/66(91) NSR 0 (11) 8(A) , No pain 14:30:43 72 18 100 33.8 140/72(103) NSR 0 (11) 8(A) , No pain 14:35:04 70 100 33.8 125/68(99) NSR 0 (11) 8(A) , No pain 14:39:20 69 14 100 39.7 129/67(100) NSR 0 (11) 8(A) , No pain 14:43:38 69 4 100 33.7 134/70(103) NSR 0 (11) 8(A) , No pain 14:47:56 67 11 100 32.2 133/77(107) NSR 0 (11) 8(A) , No pain 14:52:12 64 32 100 33.7 130/76(105) NSR 0 (11) 8(A) , No pain 14:56:28 65 11 100 35.2 122/67(100) NSR 0 (11) 8(A) , No pain Medications Time Medication Route Dose Verified Delivered Reason Notes Effe ctiveness by by 13:34:07 Heparin Flush added 3 Guillaume Galaviz used for Bag to bags Anita Howard procedure (1000units/500ml field MD [place] NS) 13:34:23 Lidocaine 1% added 20ml Guillaume Galaviz used for to vial Anita Howard procedure field MD [place] 13:41:45 Zofran I.V. 4 mg Guillaume Scales for Anita Samuels RN nausea 13:49:12 Fentanyl I.V. 50 Guillaume Brownei for mcg Anita Samuels RN sedation 13:49:24 Versed I.V. 1 mg Guillaume Brownei for Anita Samuels RN sedation 13:49:39 Vancomycin I.V.P.B 1 g Guillaume Scales used for Anita Samuels RN procedure 14:04:03 Fentanyl I.V. 25 Guillaume Scales for mcg Anita Samuels RN sedation 14:04:12 Versed I.V. 0.5 Guillaume Scales for mg Anita Samuels RN sedation 14:06:41 Heparin Bolus I.V. 5000 Guillaume Scales used for units Anita Samuels RN procedure 14:20:47 Versed I.V. 0.5 Guillaume Scales for mg Anita Samuels RN sedation 14:20:55 Fentanyl I.V. 25 Guillaume Scales for mcg Anita Samuels RN sedation 14:44:15 Fentanyl I.V. 50 Guillaume Scales for mcg Anita Samuels RN sedation Procedure Log Time Note 13:12:17 Jaymie Rubio RN sent for patient. Start room use. 13:12:18 Time tracking: Regular hours (M-F 7:00 - 5:00) 13:12:24 Plan of Care:Hemodynamics will remain stable., Cardiac rhythm will remain stable., Comfort level will be maintained., Respiratory function will remain adequate., Patient/ family verbilizes understanding of procedure., Procedure tolerated without complication., Recovers from procedure without complications.. 13:12:38 Patient received from Outpatients to IR Alert and oriented. Tansferred to table in Supine position. 13:12:39 Signed procedure consent form obtained from patient. 13:12:41 Correct patient and procedure confirmed by team. 13:12:42 ECG and BP/O2 sat monitors applied to patient. 13:12:45 - 13:12:53 H&P Date Dictated: 04/28/2019 H&P Addendum completed by physician on day of procedure. (MUST COMPLETE FOR ALL OUTPATIENTS). 13:12:55 Pre-procedure instructions explained to patient. 13:12:56 Pre-op teaching completed and patient verbalized understanding. 13:13:32 Patient allergic to Other allergy hydrocodone 13:15:42 Patient diabetic? Yes. 13:15:43 If diabetic: On Metformin? No 13:15:50 Is patient on blood thinner?Yes. Last dose 04/22/19 13:16:07 - 13:16:20 Previous problem with sedation/anesthesia? No ? 13:16:27 Snore? No 13:16:28 Sleep apnea? No 13:16:29 Deviated septum? No 13:16:30 Opens mouth fully? Yes 13:16:31 Sticks out tongue? Yes 13:16:36 - 13:19:14 IV patent on arrival in right hand with 0.45%NaCl at KVO. 13:19:22 Bilateral groins area was prepped with chlora-prep and draped in steril e fashion 13:19:24 Sharps counted by scrub and verified by Dora 13:19:24 Alarms reviewed by REleazar NEleazar 13:19:26 - 13:19:30 Use device set IR Diagnostic 13:19:32 Sterile Angiographic Pack opened to sterile field. 13:19:32 Tegaderm 4 x 4 (1626W) opened to sterile field. 13:19:33 Bag Decanter (2001S) opened to sterile field. 13:19:35 A DIAGNOSTIC IMT 5Fr Catheter ([id number]) was opened to sterile field. 13:19:37 SHEATH 5FR [place] (OFN798) opened to sterile field. 13:19:37 BENTSON 145cm wire (T85687) opened to sterile field. 13:19:38 MONSON 260 wire (U51256) opened to sterile field. 13:19:38 MICROPUNCTURE 4FR [place] (S19473) opened to sterile field. 13:19:58 - 13::54 Vital chart was started 13::03 Baseline sample Acquired. ::04 Full Disclosure recording started ::24 Pre procedure: right dorsailis pedis pulse Doppler 13::27 Pre procedure: left dorsailis pedis pulse Doppler 13::30 Pre procedure: left posterior tibial pulse Doppler ::37 Pre procedure: right posterior tibial pulse 0-Absent 13:27:41 - 13:34:07 Heparin Flush Bag (1000units/500ml NS) 3 bags added to field was administered by Guillaume Howard MD; used for procedure; :34:23 Lidocaine 1% 20ml vial added to field was administered by Guillaume griffin MD; used for procedure; 13:39:02 - 13:41:45 Zofran 4 mg I.V. was administered by Loyda Samuels RN; for nausea; 13:45:15 Physician arrived 13:45:21 --------ALL STOP TIME OUT------ 13:47:35 Bilateral groins site verified by team. 13:47:38 Fire Safety Assessment: A--An alcohol-based skin anteseptic being used preoperatively., C--Open oxygen or nitrous oxide is being used. 13:47:47 5) <15 or on dialysis Very severe, or end stage kidney failure. 13:47:59 Procedure started. 13:49:12 Fentanyl 50 mcg I.V. was administered by Loyda Samuels RN; for sedation; 13:49:24 Versed 1 mg I.V. was administered by Loyda Samuels RN; for sedation; 13:49:39 Vancomycin 1 g I.V.P.B was administered by Loyda Samuels RN; used for procedure; 13:51:26 Local anesthetic to left femerol artery with Lidocaine 1% by Guillaume Howard MD.INITIAL ACCESS ONLY 13:53:27 Access obtained with 4Fr micropunture. 13:54:34 AMPLATZ Super Stiff 75cm wire ([id number]) opened to sterile field. 13:55:00 A 5 Fr sheath was inserted into the Left Femoral artery 14:00:22 ROADRUNNER .035 260 glide wire (D12223) opened to sterile field. 14:03:41 SHEATH 6FR [place] (RSR01) opened to sterile field. 14:04:03 Fentanyl 25 mcg I.V. was administered by Loyda Samuels RN; for sedation; 14:04:06 Sheath upsized to a 6 Fr Long. 14:04:12 Versed 0.5 mg I.V. was administered by Loyda Samuels RN; for sedation; 14:06:41 Heparin Bolus 5000 units I.V. was administered by Loyda Samuels RN; used for procedure; 14:11:30 Inflate balloon Inflation number: 1 A Evercross 6 x 4 x 135 Balloon ([id number]) was prepped and advanced across the Undefined1 , then inflated . 14:14:51 Inflate balloon Inflation number: 2 A EVERCROSS 7 x 4 x 135 balloon ([id number]) was prepped and advanced across the Undefined1 , then inflated. 14:18:15 SHEATH 6FR [place] (VQX694) opened to sterile field. 14:19:56 MYNX UNDERGROUND DRILL OPERATOR 6FR/7FR (UQ2859) opened to sterile field. 14:20:10 Sheath removed intact; hemostasis achieved with Mynx Television Picture Tube Rebuilder 6Fr/7Fr to th e Left Femoral artery. 14:20:10 Sheath upsized to a 6 Fr Short. 14:20:47 Versed 0.5 mg I.V. was administered by Loyda Samuels RN; for sedation; 14:20:55 Fentanyl 25 mcg I.V. was administered by Loyda Samuels RN; for sedation; 14:24:24 - 14:25:37 Local anesthetic to right femoral artery with Lidocaine 1% by Guillaume Howard MD.ADDITIONAL ACCESS 14:26:15 Access obtained with 4Fr micropunture. 14:30:30 A 5 Fr sheath was inserted into the Right Femoral artery 14:42:45 Inflate balloon Inflation number: 1 A ATLAS 14 x 4 x 75CM balloon ([id number]) was prepped and advanced across the Undefined2 , then inflated. 14:44:15 Fentanyl 50 mcg I.V. was administered by Loyda Samuels RN; for sedation; 14:50:32 Sheath removed intact; hemostasis achieved with Manual Compression to the Right Femoral artery. 14:50:49 Procedure ended.(Physican Out) 14:51:11 Fluoroscopy time 09.60 minutes. 14:51:17 Dose Area Product 1149 mGy/cm. 14:51:39 Contrast amount:Isovue 300 80ml. 14:53:12 Insertion/operative site no bleeding no hematoma. 14:53:17 Post procedure instruction explained to patient.Patient verbalizes understanding. 14:53:19 Procedure and supply charges have been captured, reviewed, submitted an d are correct. 14:58:03 Vital chart was stopped 14:58:09 Patient transfered to Outpatients with Stretcher. 15:00:04 Full Disclosure recording stopped Intervention Summary Intervention Notes Time ActionType Lesion and Equipment Used Action# Pressure Duration Attributes 14:11:30 Inflate Undefined1 Evercross 6 x 4 1 0 00:00 balloon x 135 Balloon ([id number]) 14:14:51 Inflate Undefined1 EVERCROSS 7 x 4 2 0 00:00 balloon x 135 balloon ([id number]) 14:42:45 Inflate Undefined2 ATLAS 14 x 4 x 1 0 00:00 balloon 75CM balloon ([id number]) Device Usage Item Name Manufacture Quantity Catalog Number Hospital Part Current M inimal Lot# / Charge Number Stock Stock Serial# Code Tegaderm 4 x 4 3M 1 1626W [id number] [id number] [id number] 5 (1626W) Sterile Cardinal 1 [id number] 050221 427903 5 Angiographic Health Pack Bag Decanter Microtek 1 2001S 196719 67239 200537 5 (2001S) Medical Inc. DIAGNOSTIC IMT [place] 1 [id number] 462521 106793 82120 5 [id number] 5Fr Catheter iDoc24 ([id number]) BENTSON 145cm [employer] 1 W80731 206270 472178 5 wire (M88349) SHEATH 5FR Terumo 1 HWA707 655545 661701 760940 5 [place] (VGG561) MICROPUNCTURE [facility] 1 R76003 026111 525207 057555 5 4FR [place]udei (Y08596) MONSON 260 wire [facility] 1 Q68003 758441 25602 504621 5 (C92055) AMPLATZ Super [place] 1 [id number] 413592 897462 839222 5 [id number] Stiff 75cm wire iDoc24 ([id number]) ROADRUNNER .035 [employer] 1 K60716 699988 460532 096177 5 [id number] 260 glide wire (U65350) SHEATH 6FR Terumo 1 RSR01 832240 99975 895540 5 Destination (RSR01) Evercross 6 x 4 Medtronic 1 [id number] 109134 809715 599466 5 x 135 Balloon ([id number]) EVERCROSS 7 x 4 Medtronic 1 [id number] 082785 970330 5 x 135 balloon ([id number]) SHEATH 6FR Terumo 1 LDE303 515575 553186 011047 4 0 [place] (CWJ064) MYNX UNDERGROUND DRILL OPERATOR Access 1 MY4259 812393 551903 5 6FR/7FR Closure (EV0720) ATLAS 14 x 4 x Bard 1 [id number] 441479 319922 581501 5 75CM balloon (QC32624) Signature Audit [place] Stage Time Signature Unsigned Intra-Procedure 04/28/2019 RAGHAV KINNEY RT 2:59:55 PM (R) Signatures Monitor : RAGHAV KINNEY RT Signature : Date : Time : [place] [facility] [place] [address]
[2019-04-28 11:07] LABS: BASOPHILS 0.6 % (0-2); EOSINOPHILS 6.3 % (0-7); HEMATOCRIT 33.6 % (36.0-48.0); HEMOGLOBIN 10.6 g/dL (12-16); IMMATURE GRANULOCYTES 0.2 % (0-5); LYMPHOCYTES 23.5 % (15-50); MCH 31.1 pg (26.0-34.0); MCHC 31.5 g/dL (31.0-37.0); MCV 98.5 fL (80.0-100.0); MEAN PLATELET VOLUME 10.2 fL (7.4-10.4); MONOCYTES 6.3 % (2-11); NEUTROPHILS 63.1 % (40-80); RBC 3.41 10x6/uL (4.00-5.40); RDW 15.1 % (11.5-14.5); WBC 5.1 10x3/uL (4.8-10.8)
[2019-04-28 11:15] LABS: APTT 35.8 SECONDS (22.8-39.4); INR 1.05 (0.85-1.17); PROTIME 13.2 SECONDS (11.6-15.0)
[2019-04-28 11:20] LABS: PLATELET COUNT 144 10x3/uL (130-400)
[2019-04-28 11:36] LABS: ANION GAP 16.1 mmol/L (8-16); CALCIUM 8.5 mg/dL (8.5-10.1); CARBON DIOXIDE 24.2 mmol/L (21.0-32.0); CREATININE - SERUM 10.1 mg/dL (0.6-1.3); POTASSIUM - SERUM 5.3 mmol/L (3.5-5.1)
[2019-04-28 11:58] VITALS: BP 93/56; Ht 162.6 cm; Wt 94.8 kg
[2019-04-28 12:21] LABS: HCG SERUM NEGATIVE (NEGATIVE)
--- NOTE | 2019-04-28 15:57 | NUR ---
1410 PT ARRIVED TO ROOM. B/P LOW 79/42. TO LEFT ARM. JODI AWARE NO ORDER GIVEN. IV TO RIGHT ANTERIOR WRIST. 1410 DOPPLER PILSES TO DORSALIS PEDIUS AND POSTERIOR TIBIA
--- NOTE | 2019-04-28 16:07 | NUR ---
1410 REFUSED WATER OR TRAY
--- NOTE | 2019-04-28 18:19 | NUR ---
1820 IV REMOVED PT TILTED TO RIGHT SIDE SLIGHTLY KEEPING RIGHT LEG STRAIGHT.
--- NOTE | 2019-04-28 18:58 | NUR ---
PT SITTING UP IV REMOVED AND GETTING DRESSED. INSTRUCTIONS GIVEN
== END 2019-04-28 19:13 | disposition home or self-care (01) ==
LOC: D.SP 10:32 → D.RAD 10:32 → D.SP 19:13
PROVIDERS: Radiology Diagnostic Radiology; ATTEND Surgery
DX: I70.213 Atherosclerosis of native arteries of extremities with intermittent claudication, bilateral legs (principal); E11.22 Type 2 diabetes mellitus with diabetic chronic kidney disease; N18.6 End stage renal disease; Z99.2 Dependence on renal dialysis; Z79.84 Long term (current) use of oral hypoglycemic drugs; Z79.01 Long term (current) use of anticoagulants; Z01.812 Encounter for preprocedural laboratory examination; I87.1 Compression of vein

== ENCOUNTER 2019-06-27 07:10 | Day surgery (SDC) | payer MEDICARE ==
[~2019-06-27] VITALS: Ht 162.6 cm; Wt 90.9 kg
[2019-06-27 07:34] LABS: BASOPHILS 0.4 % (0-2); EOSINOPHILS 6.2 % (0-7); HEMOGLOBIN 12.1 g/dL (12-16); LYMPHOCYTES 21.4 % (15-50); MCH 32.3 pg (26.0-34.0); MCHC 32.7 g/dL (31.0-37.0); MCV 98.7 fL (80.0-100.0); MEAN PLATELET VOLUME 10.4 fL (7.4-10.4); MONOCYTES 9.2 % (2-11); NEUTROPHILS 62.8 % (40-80); PLATELET COUNT 143 10x3/uL (130-400); RBC 3.75 10x6/uL (4.00-5.40); RDW 14.1 % (11.5-14.5); WBC 4.7 10x3/uL (4.8-10.8)
[2019-06-27 07:44] LABS: INR 1.08 (0.85-1.17); PROTIME 13.5 SECONDS (11.6-15.0)
[2019-06-27 08:07] LABS: ANION GAP 15.4 mmol/L (8-16); CALCIUM 9.4 mg/dL (8.5-10.1); CARBON DIOXIDE 26.6 mmol/L (21.0-32.0); CREATININE - SERUM 8.6 mg/dL (0.6-1.3)
[2019-06-27 08:14] LABS: HCG SERUM NEGATIVE (NEGATIVE)
[2019-06-27 08:49] VITALS: BP 105/55; BMI 35.8
--- NOTE | 2019-06-27 14:25 | NUR ---
RECEIVED FROM RECOVERY ROOM POST OP LEFT THIGH GRAFT REMOVAL, RAHULJOHNATHONTrent PEREZHERMANJan. SHE HAS DRESSING ON LEFT THIGH WITH 4 INCISIONS AND WOUND VAC INTACT TO OUTSIDE OF THE LEFT THIGH. SOME BLOODY DRAINAGE IN TUBING AND SET AT 125. THIGH IS SOFT ABOVE INCISIONS. NO BLEEDING TO OUTSIDE OF DRESSINGS SOME SMALL SPOTS OF BLOOD ON GUAZE BELOW OCCLUSIVE DRESSING. HEMOSPIT INTACT TO OUTER LEFT THIGH. SHE IS AWAKE AND ALERT. DENIES ANY PAIN JUST SORENESS TO THIGH. BBS ARE CLEAR. SALINE LOCK INTACT TO RIGHT WRIST. VSS WITH B/P OF 92/47. ORIENT TO ROOM INCLUDING HOW TO USE THE CL. MOVES ALL EXTREMITIES UPON REQUEST.
--- NOTE | 2019-06-27 14:40 | NUR ---
ATTEMPTED TO LOCATE FAMILY. ATTEMPT WAS UNSUCCESSFUL.
[2019-06-27 15:57] VITALS: BP 92/47; BMI 34.4
[2019-06-27 16:00] VITALS: BP 92/47
--- NOTE | 2019-06-27 16:04 | MORECARE ---
CASE MANAGEMENT DISCHARGE SUMMARY PATIENT: CARA GAMA UNIT: [id number] ADM DATE: 06/27/19 AGE: 48 : 70 SEX: F ROOM/BED: D.2107 AUTHOR: YOSSI URIAS PHYSICIAN: REFERRING PHYSICIAN: LIONEL CHRISTENSEN MD DATE OF SERVICE: 06/27/19 Discharge Plan Patient Name: CARA GAMA Facility: [facility]:[place] : 1970 Planned Disposition: Home Health Service Anticipated Discharge Date: 06/28/19 Discharge Date: Expected LOS: 1 Initial Reviewer: [email or web address] Initial Review Date: 06/27/2019 Generated: 06/27/19 5:03 pm Coverage Notice Reviewer: [id number] Shaheed Arias Notice Issued Date-Time: 06/27/2019 16:02 Notice Type: Patient Choice Letter Notice Delivered To: Patient Relationship to Patient: Clinical Cytogeneticist Scientist Name: Delivery Method: HAND - Hand Delivered Abi Days: Prior Verbal Notification: Recipient Understood Notice: Yes Recipient Signature: Yes Med Rec Note Co-signed by Attending: Coverage Notice Comment: [facility] IN [place]. Patient Name: CARA GAMA Page 02228 at 1604 All edits/amendments must be made on the electronic document DICTATION DATE: 06/27/191602 PUBLICITY PERSON: SHAILA 06/27/19 160 RPT#: [id number] [place] DATE: STATUS: [facility] [address] [place] [address] END OF REPORT
--- NOTE | 2019-06-27 16:12 | MORECARE ---
CASE MANAGEMENT DISCHARGE SUMMARY PATIENT: CARA GAMA UNIT: [id number] ADM DATE: 06/27/19 AGE: 48 : 70 SEX: F ROOM/BED: D.8103 AUTHOR: YOSSI URIAS PHYSICIAN: REFERRING PHYSICIAN: LIONEL CHRISTENSEN MD DATE OF SERVICE: 06/27/19 Discharge Plan Patient Name: CARA GAMA Facility: [facility]:[place] : 1970 Planned Disposition: Home Health Service Anticipated Discharge Date: 06/28/19 Discharge Date: Expected LOS: 1 Initial Reviewer: [id number] Initial Review Date: 06/27/2019 Generated: 06/27/19 5:11 pm Comments DCP- Discharge Planning Updated by [id number]: Rubi Arias on 06/27/19 3:[address] Patient Name: CARA GAMA Admission Status: Elective Accout number: [id number] Admission Date: 06-27-2019 : 1970 Admission Diagnosis: Attending: LIONEL CHRISTENSEN Current LOS: 1 Anticipated DC Date: 06-28-2019 Planned Disposition: Home Health Service Primary Insurance: MEDICARE A & B Discharge Planning Comments: CM MET WITH PATIENT ABOUT DC PLANNING. PATIENT WILL NEED TO DC TO HOME WITH HH AND WOUND VAC. DIOGO SIGNED FOR [facility] IN [place]. I FAXED DOCUMENTS TO [facility] FOR WOUND VAC. PATIENT STATES THE PHYSICAL ADDRESS SHE WILL BE AT IS [address] [place] [address]. CM TO FOLLOW AND ASSIST NEEDED. Target Developer: Rubi Arias DCPIA - Discharge Planning Initial Assessment Updated by [id number]: Rubi Arias on 06/27/19 4:08 pm * Is the patient Alert and Oriented? Yes * PCP MeghannOT/OR GENARO * Pharmacy [facility] [place] * Preadmission Environment Home with Family * ADLs Independent * Other Equipment NONE * Additional services required to return to the preadmission environment? No * Can the patient safely return to the preadmission environment? Yes * Has this patient been hospitalized within the prior 30 days at any hospital? No Coverage Notice Reviewer: [id number] - Rubi Arias Notice Issued Date-Time: 06/27/2019 16:02 Notice Type: Patient Choice Letter Notice Delivered To: Patient Relationship to Patient: University Librarian Name: Delivery Method: HAND - Hand Delivered Abi Days: Prior Verbal Notification: Recipient Understood Notice: Yes Recipient Signature: Yes Med Rec Note Co-signed by Attending: Coverage Notice Comment: [facility] IN [place]. Last DP export: 06/27/19 3:04 Patient Name: CARA GAMA Page [id number] at 1612 All edits/amendments must be made on the electronic document DICTATION DATE: 06/27/19 161 TELEPHONE PLANT POWER OPERATOR: SHAILA 06/27/19 161 RPT#: [id number] DC DATE: STATUS: REG [facility] [address] [place] [address] END OF REPORT
--- NOTE | 2019-06-27 16:13 | NUR ---
[id number] WOUND VAC/2102/Federica GAMA/PLACED 06/27/19
--- NOTE | 2019-06-27 16:22 | MORECARE ---
CASE MANAGEMENT DISCHARGE SUMMARY PATIENT: CARA GAMA UNIT: [id number] ADM DATE: 06/27/19 AGE: 48 : 70 SEX: F ROOM/BED: D.0835 AUTHOR: YOSSI URIAS PHYSICIAN: REFERRING PHYSICIAN: LIONEL CHRISTENSEN MD DATE OF SERVICE: 06/27/19 Discharge Plan Patient Name: CARA GAMA Facility: [facility] : 1970 Planned Disposition: Home Health Service Anticipated Discharge Date: 06/28/19 Discharge Date: Expected LOS: 1 Initial Reviewer: [id number] Initial Review Date: 06/27/2019 Generated: 06/27/19 5:22 pm Comments DCP- Discharge Planning Updated by [id number]: Rubi Arias on 06/27/19 3:[address] Patient Name: CARA GAMA Admission Status: Elective Accout number: [id number] Admission Date: 06-27-2019 : 1970 Admission Diagnosis: Attending: LIONEL CHRISTENSEN Current LOS: 1 Anticipated DC Date: 06-28-2019 Planned Disposition: Home Health Service Primary Insurance: MEDICARE A & B Discharge Planning Comments: CM MET WITH PATIENT ABOUT DC PLANNING. PATIENT WILL NEED TO DC TO HOME WITH HH AND WOUND VAC. DIOGO SIGNED FOR [facility] IN [place]. I FAXED DOCUMENTS TO [facility] FOR WOUND VAC. PATIENT STATES THE PHYSICAL ADDRESS SHE WILL BE AT IS [address] [place], [place] [id number]. CM TO FOLLOW AND ASSIST NEEDED. Winter Intern: Rubi Arias DCPIA - Discharge Planning Initial Assessment Updated by [id number]: Rubi Arias on 06/27/19 4:08 pm * Is the patient Alert and Oriented? Yes * PCP MeghannOT/OR GENARO * Pharmacy [facility] [place] * Preadmission Environment Home with Family * ADLs Independent * Other Equipment NONE * Additional services required to return to the preadmission environment? No * Can the patient safely return to the preadmission environment? Yes * Has this patient been hospitalized within the prior 30 days at any hospital? No Coverage Notice Reviewer: [id number] - Rubi Arias Notice Issued Date-Time: 06/27/2019 16:02 Notice Type: Patient Choice Letter Notice Delivered To: Patient Relationship to Patient: Photoflash Powder Mixer Name: Delivery Method: HAND - Hand Delivered Abi Days: Prior Verbal Notification: Recipient Understood Notice: Yes Recipient Signature: Yes Med Rec Note Co-signed by Attending: Coverage Notice Comment: [facility] IN [place]. Last DP export: 06/27/19 3:12 Patient Name: CARA GAMA Page 67052 at 1622 All edits/amendments must be made on the electronic document DICTATION DATE: 06/27/19 162 FRONT LOAD TRASH TRUCK DRIVER: SHAILA 06/27/19 1622 RPT#: [id number] DC DATE: STATUS: REG [facility] [address] [place] [address] END OF REPORT
--- NOTE | 2019-06-27 16:54 | MORECARE ---
CASE MANAGEMENT DISCHARGE SUMMARY PATIENT: CARA GAMA UNIT: [id number] ADM DATE: 06/27/19 AGE: 48 : 70 SEX: F ROOM/BED: D.1673 AUTHOR: YOSSI URIAS PHYSICIAN: REFERRING PHYSICIAN: LIONEL CHRISTENSEN MD DATE OF SERVICE: 06/27/19 Discharge Plan Patient Name: CARA GAMA Facility: [facility]:[place] : 1970 Planned Disposition: Home Health Service Anticipated Discharge Date: 06/28/19 Discharge Date: Expected LOS: 1 Initial Reviewer: [id number] Initial Review Date: 06/27/2019 Generated: 06/27/19 5:54 pm Comments DCP- Discharge Planning Updated by [email or web address]: Rubi Arias on 06/27/19 3:[address] Patient Name: CARA GAMA Admission Status: Elective Accout number: [id number] Admission Date: 06-27-2019 : 1970 Admission Diagnosis: Attending: LIONEL CHRISTENSEN Current LOS: 1 Anticipated DC Date: 06-28-2019 Planned Disposition: Home Health Service Primary Insurance: MEDICARE A & B Discharge Planning Comments: CM MET WITH PATIENT ABOUT DC PLANNING. PATIENT WILL NEED TO DC TO HOME WITH HH AND WOUND VAC. DIOGO SIGNED FOR [facility] IN [place]. I FAXED DOCUMENTS TO [facility] FOR WOUND VAC. PATIENT STATES THE PHYSICAL ADDRESS SHE WILL BE AT IS [address] [place], [place] [id number]. CM TO FOLLOW AND ASSIST NEEDED. Hot Metal Mixer Operator: Rubi Arias DCPIA - Discharge Planning Initial Assessment Updated by [id number]: Rubi Arias on 06/27/19 4:51 pm * Is the patient Alert and Oriented? Yes * PCP OOT DR. NKECHI JARRELL /OR GENARO * Pharmacy [facility] [place] * Preadmission Environment Home with Family * ADLs Independent * Other Equipment NONE * Additional services required to return to the preadmission environment? No * Can the patient safely return to the preadmission environment? Yes * Has this patient been hospitalized within the prior 30 days at any hospital? No External Providers External Provider: [facility] Next Contact Date: Service Request Date: Service Type: Resolution: Reviewer: Comments: Coverage Notice Reviewer: [id number] - Rubi Arias Notice Issued Date-Time: 06/27/2019 16:02 Notice Type: Patient Choice Letter Notice Delivered To: Patient Relationship to Patient: Semiconductor Packages Leak Tester Name: Delivery Method: HAND - Hand Delivered Abi Days: Prior Verbal Notification: Recipient Understood Notice: Yes Recipient Signature: Yes Med Rec Note Co-signed by Attending: Coverage Notice Comment: [facility] IN [place]. Last DP export: 06/27/19 3:22 Patient Name: CARA GAMA Page 60092 at 1654 All edits/amendments must be made on the electronic document DICTATION DATE: 06/27/191653 SPECIAL EDUCATION PROFESSOR: SHAILA 06/27/191653 RPT#: [id number] DC DATE: STATUS: REG [facility] [address] [place] [address] END OF REPORT
--- NOTE | 2019-06-27 17:02 | MORECARE ---
CASE MANAGEMENT DISCHARGE SUMMARY PATIENT: CARA GAMA UNIT: [id number] ADM DATE: 06/27/19 AGE: 48 : 70 SEX: F ROOM/BED: D.2060 AUTHOR: BRIDGETT,DOC PHYSICIAN: REFERRING PHYSICIAN: LIONEL CHRISTENSEN MD DATE OF SERVICE: 06/27/19 Discharge Plan Patient Name: CARA GAMA Facility: [facility]:[place] : 1970 Planned Disposition: Home Health Service Anticipated Discharge Date: 06/28/19 Discharge Date: Expected LOS: 1 Initial Reviewer: [id number] Initial Review Date: 06/27/2019 Generated: 06/27/19 6:01 pm Comments DCP- Discharge Planning Updated by [id number]: Ben Coles on 06/27/19 3:[address] Patient Name: CARA GAMA Encounter No: [id number] : 1970 Primary Insurance: MEDICARE A & B Anticipated DC Date: 06-28-2019 Planned Disposition: Home Health Service External Planned Provider: [facility] OFFICE DCP follow-up note: CM CALLED [facility], , SPOKE TO DAINA AND WATER TAXI DRIVER. THEY CAN TAKE REFERRAL BUT WILL HAVE TO CALL PT'S PRIMARY DOCTOR NEXT WEEK AND THE PRIMARY CARE DOCTOR WOULD HAVE TO PROVIDE ORDER FOR HOME HEALTH AND IF THE DOCTOR WILL NOT, THEY WOULD NOT ACCEPT PT. CM CALLED [facility], , SOPKE TO ROYER WHO ACCEPTED PT FOR HOME HEALTH AND WILL ACCEPT DR. LAM'S ORDERS. CM FAXED REFERRAL TO [facility] AT [phone]. CM NOTIFIED PT WHO IS IN AGREEMENT WITH PLAN FOR [facility]. CM WAITING APPROVAL OF [facility] OF [facility] TO EMAIL PRESCRIPTION FOR WOUND VAC TO DR. LAM FOR ELECTRONIC SIGNAURE. [facility], [place] OFFICE, TO ACCEPT FOR HOME HEALTH WOUND VAC DRESSING CHANGES TWICE WEEKLY. NOTIFY [facility] OF DISCHARGE AT [phone], FAX DISCHARGE INFORMATION TO [facility] AT [phone]. CM TO FOLLOW AND ASSIST NEEDED. Ben Sanket, CASE MANAGEMENT DCP- Discharge Planning Updated by [id number]: Rubi Arias on 06/27/19 3:[address] Patient Name: CARA GAMA Admission Status: Elective Accout number: [id number] Admission Date: 06-27-2019 : 1970 Admission Diagnosis: Attending: ILONEL CHRISTENSEN Current LOS: 1 Anticipated DC Date: 06-28-2019 Planned Disposition: Home Health Service Primary Insurance: MEDICARE A & B Discharge Planning Comments: CM MET WITH PATIENT ABOUT DC PLANNING. PATIENT WILL NEED TO DC TO HOME WITH HH AND WOUND VAC. DIOGO SIGNED FOR [facility] IN [place]. I FAXED DOCUMENTS TO [facility] FOR WOUND VAC. PATIENT STATES THE PHYSICAL ADDRESS SHE WILL BE AT IS [address] [place] [address]. CM TO FOLLOW AND ASSIST NEEDED. Maintenance Manager: Rubi Arias DCPIA - Discharge Planning Initial Assessment Updated by [id number]: Rubi Arias on 06/27/19 4:51 pm * Is the patient Alert and Oriented? Yes * PCP OOT DR. NKECHI JARRELL /OR GENARO * Pharmacy [facility] IN [place] * Preadmission Environment Home with Family * ADLs Independent * Other Equipment NONE * Additional services required to return to the preadmission environment? No * Can the patient safely return to the preadmission environment? Yes * Has this patient been hospitalized within the prior 30 days at any hospital? No Coverage Notice Reviewer: [id number] - Rubicristiano Arias Notice Issued Date-Time: 06/27/2019 16:02 Notice Type: Patient Choice Letter Notice Delivered To: Patient Relationship to Patient: Customer Resource Specialist Name: Delivery Method: HAND - Hand Delivered Abi Days: Prior Verbal Notification: Recipient Understood Notice: Yes Recipient Signature: Yes Med Rec Note Co-signed by Attending: Coverage Notice Comment: [facility] [place]. Last DP export: 06/27/19 3:54 Patient Name: CARA GAMA Page [id number] at 1702 All edits/amendments must be made on the electronic document DICTATION DATE: 06/27/191700 WATERSHED MANAGER: SHAILA 06/27/191700 RPT#: [id number] DC DATE: STATUS: REG [facility] [address] [place] [address] END OF REPORT
--- NOTE | 2019-06-27 17:30 | NUR ---
NO CHANGE IN SURGICAL SITE WITH NO BLEEDING UPPER THIGH IS SOFT, DENIES PAIN JUST TENDER SHE DOES NOT WANT TO EAT SUPPER. CL IN REACH. RESP EVEN WITHOUT LABOR
--- NOTE | 2019-06-27 19:08 | NUR ---
REPORT RECEIVED, WILL CONTINUE POC. PATIENT IS AAO LYING IN BED. NO S/S OF DISTRESS NOTED, RR EVEN AND UNLABORED ON ROOM AIR. PATIENT DENIES NEEDS AT THIS TIME. CL IN REACH, BED LOCKED AND LOWERED. WILL CTM.
[2019-06-27 20:00] VITALS: BP 82/54
[2019-06-28 00:30] VITALS: BP 86/59
--- NOTE | 2019-06-28 02:32 | NUR ---
I have reviewed this patient and I concur with the Shift Assessment completed by the Licensed Practical Nurse today this shift.
[2019-06-28 04:00] VITALS: BP 124/95
--- NOTE | 2019-06-28 07:30 | NUR ---
A/A/OX4. DENIES ANY PAIN OR DISCOMFORT AT THIS TIME AND VOICES NO REQUESTS. WOUND VAC IN PLACE TO UPPER LEFT THIGH WITH SMALL AMT DARK BLOODY DRAINAGE IN TUBE. HEMESPLIT TO LEFT GROIN PATENT WITH DRESSING C/D/I. ASSSESSMENT COMPLETED AND WILL CONTINUE POC.
[2019-06-28 09:17] VITALS: BP 88/32
[2019-06-28 11:00] VITALS: Ht 162.6 cm; Wt 90.9 kg
--- NOTE | 2019-06-28 12:07 | NUR ---
PT REQUESTS SALINE LOCK BE REMOVED FROM INNER RIGHT WRIST. STATES IT IS VERY PAINFUL THERE AND MAKES IT DIFFICULT TO MOVE HER HAND EVERY TIME SHE TRIES TO MOVE IT. SL REMOVED WITH CATH TIP INTACT AND PT STATES NOW FEELS MUCH BETTER TO MOVE HER HAND.
--- NOTE | 2019-06-28 12:42 | NUR ---
I have reviewed this patient and I concur with the Shift Assessment completed by the Licensed Practical Nurse today this shift.
[2019-06-28] MEDS ORDERED: DOXYCYCLINE HY100 M2 PO (14:52)
[2019-06-28] MEDS ORDERED: VIBRAMYCIN50 MG PO (14:52)
--- NOTE | 2019-06-28 15:59 | MORECARE ---
CASE MANAGEMENT DISCHARGE SUMMARY PATIENT: CARA GAMA UNIT: [id number] ADM DATE: 06/27/19 AGE: 48 : 70 SEX: F ROOM/BED: D.2104 AUTHOR: BRIDGETT,DOC PHYSICIAN: REFERRING PHYSICIAN: LIONEL CHRISTENSEN MD DATE OF SERVICE: 06/28/19 Discharge Plan Patient Name: CARA GAMA Facility: [facility]:[place] : 1970 Planned Disposition: Home Health Service Anticipated Discharge Date: 06/28/19 Discharge Date: Expected LOS: 1 Initial Reviewer: [id number] Initial Review Date: 06/27/2019 Generated: 06/28/19 4:59 pm Comments DCP- Discharge Planning Updated by [id number]: Harper Cantrell on 06/28/19 2:[address] PATIENT FOR DIALYSIS AT [address] LAM SIGNED ORDER FOR WOUND VAC. IT WAS RELEASED THIS AFTERNOON AT 1250. WOUND VAC SETUP OBTAINED AND PROVIDED TO THE NURSE, KATELYNN. PAPERWORK ALSO PROVIDEDFOR PATIENT SIGNATURE. SPOKE Shaunna/ ELLE, CHARGE NURSE, TO REQUEST ASSISTANCE FOR SETUP WHEN PATIENT RETURNS TO THE UNIT. TC TO [facility] IN [place]. AWAIT CALL BACK TO ADVISE OF PROJECTED DISCHARGE. PHONE NUMBER- [phone] FAX NUMBER [phone]. FAXED H/P, LABS, DISCHARGE MED LIST AND VITAL SIGN SHEET. DCP- Discharge Planning Updated by [email or web address]: Ben Coles on 06/27/19 3:[address] Patient Name: CARA GAMA Encounter No: [id number] : 1970 Primary Insurance: MEDICARE A & B Anticipated DC Date: 06-28-2019 Planned Disposition: Home Health Service External Planned Provider: [facility] OFFICE DCP follow-up note: CM CALLED [facility], , SPOKE TO DAINA AND BRANCH ADMINISTRATOR. THEY CAN TAKE REFERRAL BUT WILL HAVE TO CALL PT'S PRIMARY DOCTOR NEXT WEEK AND THE PRIMARY CARE DOCTOR WOULD HAVE TO PROVIDE ORDER FOR HOME HEALTH AND IF THE DOCTOR WILL NOT, THEY WOULD NOT ACCEPT PT. CM CALLED [facility], , SOPKE TO ROYER WHO ACCEPTED PT FOR HOME HEALTH AND WILL ACCEPT DR. LAM'S ORDERS. CM FAXED REFERRAL TO [facility] AT [phone]. CM NOTIFIED PT WHO IS IN AGREEMENT WITH PLAN FOR [facility]. CM WAITING APPROVAL OF WOUND VAC, [facility] OF [facility] TO EMAIL PRESCRIPTION FOR WOUND VAC TO DR. LAM FOR ELECTRONIC SIGNAURE. [facility], [place] OFFICE, TO ACCEPT FOR HOME HEALTH WOUND VAC DRESSING CHANGES TWICE WEEKLY. NOTIFY [facility] OF DISCHARGE AT [phone], FAX DISCHARGE INFORMATION TO [facility] AT [phone]. CM TO FOLLOW AND ASSIST NEEDED. Ben Coles, CASE MANAGEMENT DCP- Discharge Planning Updated by [id number]: Rubi Arias on 06/27/19 3:[address] Patient Name: CARA GAMA Admission Status: Elective Accout number: [id number] Admission Date: 06-27-2019 : 1970 Admission Diagnosis: Attending: LIONEL CHRISTENSEN Current LOS: 1 Anticipated DC Date: 06-28-2019 Planned Disposition: Home Health Service Primary Insurance: MEDICARE A & B Discharge Planning Comments: CM MET WITH PATIENT ABOUT DC PLANNING. PATIENT WILL NEED TO DC TO HOME WITH HH AND WOUND VAC. DIOGO SIGNED FOR [facility] IN [place]. I FAXED DOCUMENTS TO [facility] FOR WOUND VAC. PATIENT STATES THE PHYSICAL ADDRESS SHE WILL BE AT IS [address] [place], [place] [id number]. CM TO FOLLOW AND ASSIST NEEDED. Ham Sawyer: Rubi Arias DCPIA - Discharge Planning Initial Assessment Updated by [id number]: Rubi Arias on 06/27/19 4:51 pm * Is the patient Alert and Oriented? Yes * PCP OOT DR. NKECHI JARRELL /OR GENARO * Pharmacy [facility] IN [place] * Preadmission Environment Home with Family * ADLs Independent * Other Equipment NONE * Additional services required to return to the preadmission environment? No * Can the patient safely return to the preadmission environment? Yes * Has this patient been hospitalized within the prior 30 days at any hospital? No Coverage Notice Reviewer: [id number] - Rubi Arias Notice Issued Date-Time: 06/27/2019 16:02 Notice Type: Patient Choice Letter Notice Delivered To: Patient Relationship to Patient: Mountain Bike Guide Name: Delivery Method: HAND - Hand Delivered Abi Days: Prior Verbal Notification: Recipient Understood Notice: Yes Recipient Signature: Yes Med Rec Note Co-signed by Attending: Coverage Notice Comment: [facility] [place]. Last DP export: 06/27/19 4:02 Patient Name: CARA GAMA Page [id number] at 1559 All edits/amendments must be made on the electronic document DICTATION DATE: 06/28/191558 MOTORBOAT MECHANIC HELPER: SHAILA 06/28/191558 RPT#: [id number] DC DATE: STATUS: REG [facility] [address] [place] [address] END OF REPORT
--- NOTE | 2019-06-28 17:07 | NUR ---
CALLED RX'S FOR DOXYCYCLINE TO [facility] IN [place]. PHARMACY WAS CLOSED AND I LEFT ON VOICE MAIL. PT REFUSED TO HAVE RX'S CALLED TO ANY OTHER PHARMACY.
--- NOTE | 2019-06-28 17:53 | NUR ---
PT INSTRUCTED ON USE OF PORTABLE WOUND VAC AND CONNECTED TO UNIT. WORKING CORRECTLY. DISCHARGE INSTRUCTIONS REVIEWED WITH PT AND HER AND BOTH VERBALIZE UNDERSTANDING. LEFT FLOOR VIA W/C WITH ALL PERSONAL BELONGINGS AND LEFT FACILITY VIA PRIVATE VEHICLE WITH HER .
--- NOTE | 2019-06-30 16:25 | OP ---
PATIENT NAME: CARA LOVELL MEDICAL RECORD: [id number] :[birth year] LOCATION:D.OPS ADMISSION DATE: SURGEON: CHRISTINE LAM MD DATE OF OPERATION: 06/27/2019 REFERRED BY: Dr. Walt Rocha of [place]. 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 OPERATION PERFORMED: Removal of infected vascular graft from left thigh and exchange replacement of 35 cm HemoSplit dialysis catheter under fluoroscopy with catheter in the left common femoral vein. SURGEON: Christine Lam MD ANESTHESIA: General per ELECTRICAL ASSEMBLY SUPERVISOR. PREOPERATIVE NOTE: Ms. Lovell is a 48-year-old -[place] female from [place], who has end-stage renal disease and dialyzes in [place]. Her insurance counselor is Dr. Walt Rocha. Ms. Lovell has had numerous prior dialysis access disease and dialysis catheters, all of which had failed or had complications. 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 She is really at near end-stage dialysis access. She has had two AV grafts in the right leg, which failed or became infected and had to be removed and she has had a left thigh femoral-femoral loop AV graft which thrombosed and/or became infected and has already been partially removed and she is presently dialyzing with a tunneled HemoSplit dialysis catheter in the left femoral vein, which certainly is in proximity to what is now an infected vascular graft. She has had spontaneous drainage of purulent material from a small sinus tract over the remaining graft material in the left thigh and swabs of this in [place] have grown Staphylococcus. The patient had previously been scheduled for surgery to try to implant a new PTFE graft in the right leg. However, now with active AV graft infection, my plan is simply to try to clean that out and delay returning her to the operating room as possible for another 4-6 weeks before trying to implant a new graft. Her dialysis catheter on the left has some purulent drainage at the exit site and does not have good fixation at the Dacron felt cuff within the subcutaneous tunnel and I plan to exchange it. DESCRIPTION OF PROCEDURE: Under anesthesia, the patient was prepped and draped in sterile manner. I made an incision directly over the palpable remaining graft segment and encountered pus and segments of graft, which were slimy and certainly appeared infected. The slimy material was swabbed for cultures for aerobic and anaerobic organisms and Gram stain. This graft was mobilized. The incision was extended proximally, passed the dialysis catheter and up to the groin and the catheter was mobilized very easily up to that point. Proximally, it did not appear infected, but was not attached to the surrounding tissues of the tunnel. I reopened the oblique groin incision and exposed first the dialysis catheter, which was held aside with a self-retaining retractor and I OPERATIVE REPORT [id number] CARA LOVELL continued to dissect towards the common femoral artery. The graft, it turns out as a tapered PTFE graft and there was considerable scarring and poor exposure of the common femoral artery, which I did not think necessarily needed to be fully exposed and I felt at this time comfortable with leaving a small remnant of PTFE on the artery. This part was closed with 3 Hemoclips and transected, and the graft segment was removed. Hemostasis was obtained in the wound with electrocautery and the wound was irrigated periodically with Ancef and gentamicin solution. I then performed a catheter exchange under fluoroscopy and inserted a new 35-cm long HemoSplit catheter over a guidewire through the same tunnel and venous access. Good position was obtained and both lumens of the catheter aspirated easily and were then heparin-locked, clamped and capped and the catheter sutured to the skin near the entry site with 2-0 polypropylene. The groin incision was then closed with interrupted inverted 3-0 Vicryl and running intracuticular 4-0 Monocryl and Dermabond glue. It was dressed with Maxorb Ag, Tegaderm, and Cavilon skin prep. Two-thirds of the incision, which had been made to free the dialysis access graft was then closed with interrupted 3-0 Vicryl and interrupted 3-0 Vicryl vertical mattress sutures. The remaining open wound, which is approximately 6-7 cm in length and 4 to 5 cm in width was dressed with wound VAC with jack sponge. The sutured incision was dressed with Maxorb Ag, Tegaderm, and Cavilon skin prep. The patient was awakened and taken to the recovery room. Blood loss during the operation had been surprisingly little and estimated at about 50 cc. Sponges, instruments, and needles were accounted for. No drain was used and no surgical specimen was submitted for histopathology. PLAN: The patient will need to remain in the hospital at least overnight and probably into next week. We will need to, if at all possible, arrange for home health agency to provide her wound VAC dressings at least twice a week and we will need to do this until I can get her back to the operating room to perform primary closure of her wound or we convert to wet-to-dry dressings. Long-term, my plan, as I said to return to the operating room for an AV graft implantation on right thigh and on a long-term she will need 6 weeks of vancomycin and definitely should be on oral doxycycline at low dose 100 or 50 mg p.o. daily. For the next 6 weeks, we will have her swab her nostrils with a 10% povidone iodine and do frequent Hibiclens baths. TRANSINT:[id number] Voice Confirmation ID: [id number] DOCUMENT ID: [id number] cc: CHRISTINE Arambula MD at 1627 CC: [id number] DICTATION DATE: 06/27/19 142 LIQUEFACTION SUPERVISOR: 06/27/19 1527 [facility] 06/28/19 [facility] [address] [place] [address]
--- NOTE | 2019-07-04 16:02 | MORECARE ---
CASE MANAGEMENT DISCHARGE SUMMARY PATIENT: CARA GAMA UNIT: [id number] ADM DATE: 06/27/19 AGE: 48 : 70 SEX: F ROOM/BED: AUTHOR: BRIDGETT,DOC PHYSICIAN: REFERRING PHYSICIAN: LIONEL CHRISTENSEN MD DATE OF SERVICE: 07/04/19 Discharge Plan Patient Name: CARA GAMA Facility: [facility]:[place] : 1970 Planned Disposition: Home Health Service Anticipated Discharge Date: 06/28/19 Discharge Date: 06/28/2019 Expected LOS: 1 Initial Reviewer: [id number] Initial Review Date: 06/27/2019 Generated: 07/04/19 5:02 pm Comments DCP- Discharge Planning Updated by [id number]: Harper Cantrell on 06/28/19 2:[address] PATIENT FOR DIALYSIS AT [address] LAM SIGNED ORDER FOR WOUND VAC. IT WAS RELEASED THIS AFTERNOON AT 1250. WOUND VAC SETUP OBTAINED AND PROVIDED TO THE NURSE, KATELYNN. PAPERWORK ALSO PROVIDEDFOR PATIENT SIGNATURE. SPOKE W/ ELLE, CHARGE NURSE, TO REQUEST ASSISTANCE FOR SETUP WHEN PATIENT RETURNS TO THE UNIT. TC TO [facility] IN [place]. AWAIT CALL BACK TO ADVISE OF PROJECTED DISCHARGE. PHONE NUMBER- [phone] FAX NUMBER [phone]. FAXED H/P, LABS, DISCHARGE MED LIST AND VITAL SIGN SHEET. DCP- Discharge Planning Updated by [id number]: Ben Coles on 06/27/19 3:[address] Patient Name: CARA GAMA Encounter No: [id number] : 1970 Primary Insurance: MEDICARE A & B Anticipated DC Date: 06-28-2019 Planned Disposition: Home Health Service External Planned Provider: [facility] OFFICE DCP follow-up note: CM CALLED [facility], , SPOKE TO DAINA AND GOODWILL AMBASSADOR. THEY CAN TAKE REFERRAL BUT WILL HAVE TO CALL PT'S PRIMARY DOCTOR NEXT WEEK AND THE PRIMARY CARE DOCTOR WOULD HAVE TO PROVIDE ORDER FOR HOME HEALTH AND IF THE DOCTOR WILL NOT, THEY WOULD NOT ACCEPT PT. CM CALLED [facility], , SOPKE TO ROYER WHO ACCEPTED PT FOR HOME HEALTH AND WILL ACCEPT DR. LAM'S ORDERS. CM FAXED REFERRAL TO [facility] AT [phone]. CM NOTIFIED PT WHO IS IN AGREEMENT WITH PLAN FOR [facility]. CM WAITING APPROVAL OF WOUND VAC, [facility] OF [facility] TO EMAIL PRESCRIPTION FOR WOUND VAC TO DR. LAM FOR ELECTRONIC SIGNAURE. [facility], [place] OFFICE, TO ACCEPT FOR HOME HEALTH WOUND VAC DRESSING CHANGES TWICE WEEKLY. NOTIFY [facility] OF DISCHARGE AT [phone], FAX DISCHARGE INFORMATION TO [facility] AT [phone]. CM TO FOLLOW AND ASSIST NEEDED. Ben Coles, CASE MANAGEMENT DCP- Discharge Planning Updated by [email or web address]: Rubi Arias on 06/27/19 3:[address] Patient Name: CARA GAMA Admission Status: Elective Accout number: [id number] Admission Date: 06-27-2019 : 1970 Admission Diagnosis: Attending: LIONEL CHRISTENSEN Current LOS: 1 Anticipated DC Date: 06-28-2019 Planned Disposition: Home Health Service Primary Insurance: MEDICARE A & B Discharge Planning Comments: CM MET WITH PATIENT ABOUT DC PLANNING. PATIENT WILL NEED TO DC TO HOME WITH HH AND WOUND VAC. DIOGO SIGNED FOR [facility] IN [place]. I FAXED DOCUMENTS TO [facility] FOR WOUND VAC. PATIENT STATES THE PHYSICAL ADDRESS SHE WILL BE AT IS [address] [place], [place] [id number]. CM TO FOLLOW AND ASSIST NEEDED. Greenhouse Assistant: Rubi Arias DCPIA - Discharge Planning Initial Assessment Updated by [id number]: Rubi Arias on 06/27/19 4:51 pm * Is the patient Alert and Oriented? Yes * PCP OOT DR. NKECHI JARRELL /OR GENARO * Pharmacy [facility] IN [place] * Preadmission Environment Home with Family * ADLs Independent * Other Equipment NONE * Additional services required to return to the preadmission environment? No * Can the patient safely return to the preadmission environment? Yes * Has this patient been hospitalized within the prior 30 days at any hospital? No Coverage Notice Reviewer: [id number] - Rubi Arias Notice Issued Date-Time: 06/27/2019 16:02 Notice Type: Patient Choice Letter Notice Delivered To: Patient Relationship to Patient: Cafeteria Worker Name: Delivery Method: HAND - Hand Delivered Abi Days: Prior Verbal Notification: Recipient Understood Notice: Yes Recipient Signature: Yes Med Rec Note Co-signed by Attending: Coverage Notice Comment: [facility] IN [place]. Last DP export: 06/28/19 2:59 Patient Name: CARA GAMA Page [id number] at 1602 All edits/amendments must be made on the electronic document DICTATION DATE: 07/04/191601 PROTECTIVE SIGNAL SUPERINTENDENT: SHAILA 07/04/191601 RPT#: [id number] DC DATE:06/28/19 STATUS: DEP [facility] [address] [place] [address] END OF REPORT
== END 2019-06-28 18:10 | disposition home or self-care (01) ==
LOC: D.OPS 07:10 → D.M2 14:34 → D.OPS 06-28 18:10
PROVIDERS: Anesthesiology; Surgery; ATTEND Internal Medicine Nephrology
DX: T82.868A Thrombosis due to vascular prosthetic devices, implants and grafts, initial encounter (principal); Y83.9 Surgical procedure, unspecified as the cause of abnormal reaction of the patient, or of later complication, without mention of misadventure at the time of the procedure; E11.22 Type 2 diabetes mellitus with diabetic chronic kidney disease; I12.0 Hypertensive chronic kidney disease with stage 5 chronic kidney disease or end stage renal disease; N18.6 End stage renal disease; T82.7XXA Infection and inflammatory reaction due to other cardiac and vascular devices, implants and grafts, initial encounter; E11.51 Type 2 diabetes mellitus with diabetic peripheral angiopathy without gangrene

== ENCOUNTER → 2019-08-11 11:53 | Outpatient (CLI) | payer MEDICARE ==
[2019-06-28 11:00] VITALS: BMI 34.4
[~2019-08-11 11:53] MED LIST changes: +DOXYCYCLINE HY100 M2 PO; +VIBRAMYCIN50 MG PO
== END | disposition home or self-care (01) ==
LOC: D.LABREF 11:53
PROVIDERS: ATTEND Surgery
DX: L08.9 Local infection of the skin and subcutaneous tissue, unspecified (principal)

== ENCOUNTER 2019-09-19 06:08 | Day surgery (SDC) | payer MEDICARE ==
[~2019-09-19] VITALS: Ht 162.6 cm; Wt 94.3 kg
[2019-09-19 06:27] LABS: BASOPHILS 0.4 % (0-2); EOSINOPHILS 7.6 % (0-7); HEMOGLOBIN 11.9 g/dL (12-16); IMMATURE GRANULOCYTES 0.1 % (0-5); LYMPHOCYTES 28.2 % (15-50); MCH 31.3 pg (26.0-34.0); MCHC 32.2 g/dL (31.0-37.0); MCV 97.4 fL (80.0-100.0); MEAN PLATELET VOLUME 10.3 fL (7.4-10.4); MONOCYTES 7.3 % (2-11); NEUTROPHILS 56.4 % (40-80); PLATELET COUNT 141 10x3/uL (130-400); RDW 14.2 % (11.5-14.5); WBC 6.8 10x3/uL (4.8-10.8)
[2019-09-19 06:46] LABS: ANION GAP 17.8 mmol/L (8-16); CALCIUM 9.4 mg/dL (8.5-10.1); CARBON DIOXIDE 24.8 mmol/L (21.0-32.0); CREATININE - SERUM 11.5 mg/dL (0.6-1.3); POTASSIUM - SERUM 4.6 mmol/L (3.5-5.1)
[2019-09-19 06:55] LABS: HCG SERUM NEGATIVE (NEGATIVE)
[2019-09-19 06:56] LABS: INR 1.11 (0.85-1.17); PROTIME 14.2 SECONDS (11.6-15.0)
[2019-09-19 07:16] VITALS: BP 82/50; Ht 162.6 cm; Wt 94.3 kg
[2019-09-19] MEDS ORDERED: DILAUDID2 MG PO (10:44)
--- NOTE | 2019-09-19 10:56 | NUR ---
BRUIT AND THRILL NOTED TO R.THIGH FISTULA. FAINT.
--- NOTE | 2019-09-19 12:13 | NUR ---
1150 IV REMOVED PRESSURE HELD. INSTRUCTION GIVEN
--- NOTE | 2019-09-23 14:01 | OP ---
PATIENT NAME: CARA LOVELL MEDICAL RECORD: [id number] :70 LOCATION:D.[facility] ADMISSION DATE: SURGEON: CHRISTINE LAM MD DATE OF OPERATION: 09/19/2019 REFERRING PHYSICIAN: Dr. Walt Rocha of [place]. PREOPERATIVE DIAGNOSES: End-stage renal disease and dependence on hemodialysis with thrombophilia and multiple prior failed or thrombosed dialysis access grafts and fistulas, history of infected arteriovenous grafts and dialysis catheters, diabetes, hypertension, morbid obesity, atherosclerotic peripheral vascular disease, and superior vena cava syndrome. POSTOPERATIVE DIAGNOSES: End-stage renal disease and dependence on hemodialysis with thrombophilia and multiple prior failed or thrombosed dialysis access grafts and fistulas, history of infected arteriovenous grafts and dialysis catheters, diabetes, hypertension, morbid obesity, atherosclerotic peripheral vascular disease, and superior vena cava syndrome. OPERATION PERFORMED: Implantation of an Artegraft AV loop in the right thigh between the right superficial femoral artery and the right superficial femoral vein at the mid-thigh level. SURGEON: Christine Lam MD ANESTHESIA: General with LMA per NATIONAL BUSINESS DIRECTOR. PREOPERATIVE NOTE: Ms. Lovell is a 48-year-old -Eth[place]ian female with end-stage renal disease, who has had numerous failed dialysis accesses and has superior vena cava syndrome due to extensive upper extremity and central thoracic venous occlusions and stenoses. She has no available dialysis access in the upper extremities and is off just about at end stage as far as dialysis access and that she has had dialysis access grafts in both groins and presently is dialyzing with a left femoral dialysis catheter. She is brought to the hospital and to the operating room at this time to try to implant an AV graft in her right thigh based on the superficial femoral artery and vein. DESCRIPTION OF PROCEDURE: Under general anesthesia in supine position, the patient was prepped and draped in sterile manner. I examined the right thigh with ultrasound and located the superficial femoral artery and vein at mid femur level. I made a longitudinal incision on the medial aspect of the thigh and exposed the superficial femoral artery and vein. These vessels were exposed and controlled in with Silastic loops. I chose an Artegraft prosthetic and placed it in a wide looping tunnel in the anterior thigh using 1 small counterincision on the lateral aspect. The venous outflow end was on the superior or upper aspect of the loop. The end was beveled and shortened. The vein was opened for short distance and flushed proximally and distally with heparinized saline and then an end-to-side, end of graft to side of vein anastomosis performed with running 6-0 Prolene. The graft was flushed with heparinized saline and distended and the arterial limb placed in a superficial subcutaneous tunnel and brought back to the medial incision where the graft was shortened and beveled and the artery was occluded with doubly looped Silastic tapes. A small arteriotomy was made and it was noted that it was necessary to use vascular clamps both proximally and distally to occlude flow. The arteriotomy was completed and the artery flushed proximally and distally with heparinized OPERATIVE REPORT [id number] CARA LOVELL Jossy saline. The graft was then anastomosed end-to-side, end of graft to side of artery with continuous running 6-0 Prolene. When that was completed that suture line was treated with Evicel and after 2 minutes of cure time, the occluding loops and clamps were released and excellent flow developed immediately within the new AV graft. There was good pulsatile Doppler flow in the superficial femoral artery, proximal to and also distal to the arterial anastomosis and there was good arterial continuous pulsatile flow in the superficial femoral vein just above the anastomosis. There was excellent continuous pulsatile flow within the graft as well by Doppler. Both suture lines were quite hemostatic. The wound was irrigated with Ancef/gentamicin solution and infiltrated and irrigated with 0.25% Marcaine with epinephrine. The wound was closed without the use of a drain approximating the superficial fascial level with interrupted inverted 3-0 Vicryl and the skin was closed with running intracuticular 4-0 Stratafix and Dermabond glue. The incision was dressed with Maxorb Ag, Tegaderm, and Cavilon skin prep and the patient then awakened in satisfactory condition taken to the recovery room. I anticipate, the patient going home today and following up in my office in 2 weeks. It will be at least 2 weeks before the new AV graft can be accessed. Blood loss during the operation was trivial and unreplaced. Sponges, instruments, and needles were accounted for. No drain was used and no surgical specimen submitted for histopathology. TRANSINT:[id number] Voice Confirmation ID: [id number] DOCUMENT ID: [id number] cc: CHRISTINE Stewart MD at 1401 CC: [id number] DICTATION DATE: 09/19/19 1120 AIR AND WATER FILLER: 09/19/19 1547 [facility] 09/19/19 [place] [id number] [place] [address]
== END 2019-09-19 12:00 | disposition home or self-care (01) ==
LOC: D.OPS 06:08
PROVIDERS: Anesthesiology; Surgery; ATTEND Internal Medicine Nephrology
DX: N18.6 End stage renal disease (principal); Z99.2 Dependence on renal dialysis; I70.213 Atherosclerosis of native arteries of extremities with intermittent claudication, bilateral legs; T82.7XXA Infection and inflammatory reaction due to other cardiac and vascular devices, implants and grafts, initial encounter; E66.01 Morbid (severe) obesity due to excess calories; I70.209 Unspecified atherosclerosis of native arteries of extremities, unspecified extremity; I87.1 Compression of vein; I12.0 Hypertensive chronic kidney disease with stage 5 chronic kidney disease or end stage renal disease; E11.22 Type 2 diabetes mellitus with diabetic chronic kidney disease; T82.9XXA Unspecified complication of cardiac and vascular prosthetic device, implant and graft, initial encounter

== ENCOUNTER 2019-10-10 07:00 | Inpatient (IN) | payer MEDICARE ==
[2019-10-10] VITALS (24 sets, daily range): BP systolic 103–144; BP diastolic 59–87; BMI 35.8; BMI 36.1
[~2019-10-10] VITALS: Ht 162.6 cm; Wt 103.7 kg
--- NOTE | ~2019-10-10 | OP ---
PATIENT NAME: CARA LOVELL MEDICAL RECORD: [id number] :70 LOCATION:D.[facility] D.2305 ADMISSION DATE:10/10/19 SURGEON: CHRISTINE LAM MD DATE OF OPERATION: 10/11/2019 She was subsequently admitted to ICU and so converted to inpatient that day, so she is an inpatient. REFERRING PHYSICIAN: Dr. Steve Graves, of [place]. PREOPERATIVE DIAGNOSIS: End-stage renal disease on chronic hemodialysis with superior vena cava syndrome and multiple failed prior dialysis accesses and history of infected dialysis access graft. POSTOPERATIVE DIAGNOSES: End-stage renal disease on chronic hemodialysis with superior vena cava syndrome and multiple failed prior dialysis accesses and history of infected dialysis access graft. ADDITIONAL DIAGNOSES: Diabetes, chronic hypotension with past history of hypertension, morbid obesity, peripheral atherosclerotic arterial disease involving the lower extremities and arteriovenous dialysis graft thrombosis. OPERATION PERFORMED: Left thigh AV graft percutaneous mechanical thrombolysis with fistulogram and pharmacologic thrombolysis with TPA and balloon angioplasty of venous and arterial anastomotic stenoses and mid graft stenosis and also selective right superficial femoral arteriogram. SURGEON: Christine Lam MD ANESTHESIA: General with LMA per GENERAL LABOR FORKLIFT OPERATOR. PREOPERATIVE NOTE: Ms. Lovell is a very nice 48-year-old -[place]oz[place] female from [place]. She has end-stage renal disease and dialyzes in [place], Dr. Steve Graves is her mac developer. She has had numerous failed prior dialysis accesses and most recently a little over 2 weeks ago, I implanted an Artegraft loop AV graft in her right thigh between the superficial femoral artery and vein at the mid thigh level. That graft functioned for about 48 hours before it thrombosed. She is returned to the operating room a little over 2 weeks later to attempt to perform mechanical thrombolysis and reestablish patency of this AV graft. The patient has been on Eliquis, but most recently, she has not been on Plavix or aspirin in addition. She is on midodrine 2.5 mg 3 times daily and that dose will need to be increased as hypotension is one of the if not the most important contributing factors to the early graft failure. I do not believe that her thrombophilia has ever been characterized or given a specific diagnosis such as a factor deficiency or von Willebrand's, etc. DESCRIPTION OF PROCEDURE: Under general anesthesia in supine position, the patient was prepped and draped in a sterile manner. The loop graft in her right thigh was accessed twice using ultrasound guidance with appropriate documentation of the procedure with permanent images recorded in the patient's chart. Two 6-Iranian micropuncture technique was used for both sites and two 6-Iranian introducers were inserted in opposing directions. A 0.035 angled Glidewire was inserted and passed across the arterial anastomosis and into the most proximal superficial femoral artery and actually up into the common femoral OPERATIVE REPORT [id number] CARA LOVELL artery. A preliminary selective right superficial femoral arteriogram was performed, which revealed no evidence of embolism or occlusion or thrombosis of the superficial femoral or popliteal or proximal anterior tibial or posterior tibial arteries. The peroneal was patent also. There is roughening of the artery consistent with her known atherosclerosis and calcification of the arterial wall is present as well. I then laced the clot within the graft with a total of 2 mg of TPA diluted to a total of 10 mg of fluid volume, which was half a contrast. I then performed Mal catheter thrombectomy and aspirated clot from the ports and contrast injection demonstrated extensive residual thrombus within the graft. There was also an area of mid graft stenosis which really looked like just a turn which one would expect to expand under arterial pressure. I saw persistent thrombus in the arterial limb and in the venous anastomosis. The arterial anastomosis was then treated with balloon angioplasty with a 7 mm x 40 angioplasty balloon and body of the graft was similarly treated in the mid graft stenosis, dilated with that same balloon as was then the venous anastomosis. There was approximately a 50% to 60% stenosis of the venous anastomosis due to persistent thrombus and this was similar in the arterial anastomosis also. The midbody graft stenosis had the appearance of 70% stenosis, but this dilated with very little pressure and as I said is simply consistent with the absence of arterial pressure within the lumen of this fairly fresh or new AV graft. The patient was systemically heparinized with 5000 units of heparin at the beginning of the procedure and when she continued to form clots within the graft she was given a total of an additional 5000 units for a procedural total of 10,000 units of heparin. During the operation, her blood pressure fluctuated wildly and it was necessary to use intravenous Constantin-Synephrine and dopamine to maintain a reasonable blood pressure that we could expect her to maintain patency of her graft. Eventually with buddhism of pulsatile continuous color flow within the graft despite the fact that there was still thrombus within the body of the graft and in the venous and arterial anastomosis. The 6-Iranian introducers were removed and hemostasis obtained at those sites with a [id number]-oz-[id number] 4-0 Prolene sutures and a period of prolonged direct pressure. The patient's heparinization was not reversed and she was continued on dopamine in to the recovery room. The operative sites were dressed with Ultrafoam, Tegaderm, and Cavilon skin prep. PLAN: In order to maintain patency of the graft, I think it is essential that we continue the patient on intravenous heparin as well as pressors to maintain her systolic blood pressure. She is being admitted to the ICU for at least an overnight stay to receive her medications. Hopefully, she will be able to dialyze with her graft here at [place] in the morning and then hopefully also be able to go home. We will plan for her to go home on Eliquis 5 mg p.o. b.i.d., Plavix 75 mg once daily, aspirin 325 mg 1 daily and increase her midodrine dosage from 2.5 mg-10 mg t.i.d. The patient has an old AV graft in her right thigh, which in one area has eroded through the skin and which certainly needs to be removed. I had originally hoped or planned to perhaps do that today. However, with the patient so unstable and so adequately anticoagulated, I think it is better to delay and wait and hopefully do this when she comes back to have her tunneled dialysis catheter removed. Note, the patient's selective femoral arteriogram was repeated prior to completion of the operation and there was no evidence of embolus or thrombus in OPERATIVE REPORT [id number] CARA LOVELL the superficial femoral, popliteal or posterior tibial or peroneal or anterior tibial arteries. TRANSINT:[id number] Voice Confirmation ID: [id number] DOCUMENT ID: [id number] cc: Dr. Steve Graves [facility] CHRISTINE LAM MD CC: DR. STEVE GRAVES [id number] DICTATION DATE: 10/11/19 1252 PROCESS DESIGNER: 10/11/19 2319 [facility] IN 10/11/[address] [facility] [address] [place] [address]
[2019-10-10 07:22] LABS: BASOPHILS 0.5 % (0-2); EOSINOPHILS 5.4 % (0-7); HEMATOCRIT 34.7 % (36.0-48.0); HEMOGLOBIN 11.3 g/dL (12-16); IMMATURE GRANULOCYTES 0.2 % (0-5); LYMPHOCYTES 23.9 % (15-50); MCH 31.7 pg (26.0-34.0); MCHC 32.6 g/dL (31.0-37.0); MCV 97.5 fL (80.0-100.0); MEAN PLATELET VOLUME 10.5 fL (7.4-10.4); MONOCYTES 6.1 % (2-11); NEUTROPHILS 63.9 % (40-80); RBC 3.56 10x6/uL (4.00-5.40); RDW 14.5 % (11.5-14.5); WBC 6.1 10x3/uL (4.8-10.8)
[2019-10-10 07:29] LABS: INR 1.04 (0.85-1.17); PLATELET COUNT 171 10x3/uL (130-400); PROTIME 13.6 SECONDS (11.6-15.0)
[2019-10-10 07:34] LABS: ANION GAP 17.7 mmol/L (8-16); CALCIUM 9.2 mg/dL (8.5-10.1); CARBON DIOXIDE 24.1 mmol/L (21.0-32.0); CREATININE - SERUM 8.7 mg/dL (0.6-1.3); POTASSIUM - SERUM 3.8 mmol/L (3.5-5.1)
[2019-10-10 08:27] LABS: HCG SERUM NEGATIVE (NEGATIVE)
--- NOTE | 2019-10-10 14:40 | NUR ---
REC'D VIA STRETCHER FROM RECOVERY ROOM NURSE, AWAKE, ALERT AND NAUSEATED, VOMITING, STOMACH CONTENT, ZOFRAN 4MG IVP GIVEN, PER MAR ORDER, CONNECTED TO MONITORS, VSS, DENIES PAIN AT THIS TIME LEFT GROIN HEMESPLIT WITH DOPAMINE INFUSING AT 3.5 MCG, AND NS INFUSING FREE FLOW IN MICRO DRIP TUBING, RIGHT LEG FISTULA SITE CDI, LEFT FOOT WITH ALL TOES AMPUTATED, ASSESSMENT COMPLTED PER FLOWSHEET, ACCLAMATED TO ICU, NO FAMILY HERE AT THIS TIME,
--- NOTE | 2019-10-10 16:30 | NUR ---
REFUSED DINNER TRAY, NO APPETITE, FAMILY AT BEDSIDE, NO NEEDS AT THIS TIME
--- NOTE | 2019-10-10 17:00 | NUR ---
HEPARIN GTT INTITIATED 1000 U/HR PER DR LAM, PTT ORDERED FOR 2300
--- NOTE | 2019-10-10 19:00 | NUR ---
ASSESSMENT COMPLETED. DENIES ANY NEEDS. BREATHING ON ROOM AIR. + BRUIT IN RIGHT AVG. CALL LIGHT IN REACH
--- NOTE | 2019-10-10 21:00 | NUR ---
DENIES ANY NEEDS. REFUSES CHG BATH. CALL LIGHT IN REACH. INDEPENDENT WITH REPOSITIONING
--- NOTE | 2019-10-10 23:00 | NUR ---
RE-ASSESSMENT COMPLETED AT THIS TIME, MISTYPED TIME- SAYS 1900 BUT WAS DONE AT 2300.
[2019-10-11] VITALS (33 sets, daily range): BP systolic 73–124; BP diastolic 42–68; Ht 162.6 cm; Wt 103.7 kg
--- NOTE | 2019-10-11 01:00 | NUR ---
EYES CLOSED, EASILY WAKES. DENIES ANY NEEDS. ATTEMPTED TO TITRATE DOPAMINE DOWN BUT BP AND MAP WOULD DROP.
--- NOTE | 2019-10-11 03:00 | NUR ---
RE-ASSESSMENT COMPLETED. NO CHANGES SINCE LAST ASSESSMENT.
--- NOTE | 2019-10-11 05:00 | NUR ---
DENIES ANY NEEDS. NO CHANGE TO TO HEPARIN A DRIP
--- NOTE | 2019-10-11 10:17 | NUR ---
0800 AM ASSESMENT IS COMPLETE SEE FLOW SHEET FOR ASSESMENT FINDINGS.. PT IS AWAKE AND ALERT WANTING TO BE DIALIZED SO THAT SHE CAN GO HOME .RIGHT THIGH WITH DRESSINGS CDI .. LEFT GROIN HEMASPLIT IN PLACE.. 0830 BREAKFAST IS SERVED AND PT IS FEEDING SELF..REE [place] RENAL IN TO SEE PT UPDATE IS GIVEN.. 0900 FAMILY IS AT BEDSIDE.. 0915 FAMILY ASSISTING PATIENT WITH BATH 0930 MEDS GIVEN .. ORDC CALLED AND TIME FRAME OBTAINED FOR DIALYSIS 1000 IV FLUIDS DCd PER ORDER AFTER MEDS GIVEN.. HEMASPLIT FLUSHED WITH NS AND CAPPED..
--- NOTE | 2019-10-11 11:48 | NUR ---
1140 DIALYSIS HERE .. 1130 DIALYSIS IN PROGRESS PT BP 83 SYS PT IS ASYMPTOMATIC ALFREDO TECHNOLOGY ANALYST RENAL CALLED ORDER RECIEVED.. 1140 ONE TIME DOSE MIDADINE 10MG GIVEN AND TID DOSE INDREASED.. [address] LAM IN TO SEE PT UPDATE GIVEN..
[2019-10-11] MEDS ORDERED: MIDODRINE HCL5 MG PO (13:19)
[2019-10-11] MEDS ORDERED: ELIQUIS5 MG PO (13:20)
[2019-10-11] MEDS ORDERED: PLAVIX75 MG PO (13:21)
== END 2019-10-11 14:51 | disposition home or self-care (01) | DRG 270 ==
LOC: D.OPS 07:00 → D.ICU 14:01 → D.OPS 14:21 → D.ICU 10-11 14:51
PROVIDERS: Anesthesiology; Surgery; ADMIT Internal Medicine; ATTEND Internal Medicine
PROC: 3E05317 Introduction of Other Thrombolytic into Peripheral Artery, Percutaneous Approach (ICD-10-PCS; 2019-10-10)
PROC: B40F1ZZ Plain Radiography of Right Lower Extremity Arteries using Low Osmolar Contrast (ICD-10-PCS; 2019-10-10)
PROC: 04CK3ZZ Extirpation of Matter from Right Femoral Artery, Percutaneous Approach (ICD-10-PCS; principal; 2019-10-10 09:30)
DX: T82.868A Thrombosis due to vascular prosthetic devices, implants and grafts, initial encounter (principal); N18.6 End stage renal disease; E11.22 Type 2 diabetes mellitus with diabetic chronic kidney disease; Z99.2 Dependence on renal dialysis; I95.9 Hypotension, unspecified

== ENCOUNTER 2019-10-22 10:45 | Day surgery (SDC) | payer MEDICARE ==
[~2019-10-22] VITALS: Ht 162.6 cm; Wt 96.6 kg
--- NOTE | ~2019-10-22 | OP ---
PATIENT NAME: CARA LOVELL MEDICAL RECORD: [id number] :70 LOCATION:D.OPS ADMISSION DATE: SURGEON: CHRISTINE LAM MD DATE OF OPERATION: 10/22/2019 REFERRING PHYSICIAN: Ghulam Davilaarkana OPERATION PERFORMED: Right thigh mechanical thrombolysis with angiography and angioplasty and selective right superficial femoral artery arteriogram and injection of 2 mg of TPA for thrombolysis. SURGEON: Christine Lam MD ANESTHESIA: Local MAC per DISPATCHER STREET DEPARTMENT. PREOPERATIVE NOTE: Ms. Lovell is a 48-year-old diabetic -Yemeni female with end-stage renal disease, who is almost end-stage access. 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 The patient is also chronically hypotensive and thrombophilic and she has thrombosed the new AV graft despite anticoagulation with Eliquis and Plavix. She is brought to the operating room now to perform a percutaneous thrombolysis procedure. DESCRIPTION OF PROCEDURE: Under MAC, the patient was placed on the operating table and the right leg prepped and draped in sterile manner. Local anesthetic 1% lidocaine was injected into skin and subcutaneous tissues as needed. Micropuncture technique was used along with ultrasound guidance to access the venous limb of the graft. Ultrasound images were observed throughout the insertion of the needle and wire into the AV graft and realtime images were documented on hard copy paper for the patient's chart. A 7-Chadian introducer sheath was inserted. In addition, approximately 4-5 cm proximal to that sheath another one was inserted, directed towards the arterial anastomosis. A guidewire was then inserted and an AngioJet catheter advanced and used to lyse thrombus in the body of the graft venous and arterial limbs. The patient was systemically heparinized with an additional 10,000 units of heparin. Contrast injection revealed persistent thrombus in the venous anastomosis stenosis in the body of the graft more or less probably a kink, which I would expect to straighten out under pressure. Angioplasty was performed with a 7-mm diameter angioplasty balloon with good effect. A Mal embolectomy catheter was used to pull the arterial plug restoring flow in the graft. A wire and catheter were then selectively passed into the proximal superficial femoral artery and contrast injected to perform a selective arteriogram. This was necessary in order to assess the patient for distal emboli and occlusive disease, and also to better assess the arterial anastomosis and JA segment themselves. This contrast injection demonstrated irregularity in the superficial femoral artery, but no occlusions and good flow filling of the arterial limb. There was no arterial anastomotic stenosis. The sheaths were removed and hemostasis obtained with direct pressure and [id number] 4-0 Prolene sutures. Sterile dressings were applied at these sites. The patient was then awakened and in stable condition, though with a cool right foot taken to the recovery room. There was good Doppler pulsatile continuous flow in the graft and a palpable pulse and thrill and audible bruit present. OPERATIVE REPORT [id number] CARA LOVELL Blood loss during the procedure was about 20 cc, none replaced. Sponges, instruments, and needles were accounted for. No drain was used. PLAN: Observe her in the hospital tonight to watch for potential bleeding and any problems with distal ischemia. She needs to have dialysis here in [place] before she goes home anyway. We will try to get dialyzed here in the hospital in the morning, hopefully via her right thigh AV graft if assuming it is still open. If all goes well, she can be discharged home tomorrow. I do not have an appetite for continually declotting this graft with this patient's hypotension and thrombophilia. I believe the best course of action for her would be placement of a right internal jugular catheter, so we can remove her left femoral catheter and then go ahead and excise the remaining exposed graft material and the left thigh and femoral area. She could potentially resume peritoneal dialysis if she were to have fluoroscopy and pleurodesis at the same time as placement of a peritoneal catheter. In the past, she has not been receptive to that. Another option would be to refer her to [place] to have a Sort Supervisor Inside-Out procedure if that is possible for placement of a right internal jugular line. Unfortunately, I do think she is a candidate for a HeRO graft procedure based on the right internal jugular outflow because of her thrombophilia and hypotension. Perhaps, she can make it to the emergency transplant list. TRANSINT:[id number] Voice Confirmation ID: [id number] DOCUMENT ID: [id number] CHRISTINE LAM MD CC: DR. NKECHI JARRELL [id number] DICTATION DATE: 11/11/191122 [employer] SALES REPRESENTATIVE: 11/11/19 1351 [facility] [place] 10/23/19 [place] [id number] [facility] [place] [address]
[~2019-10-22 10:45] MED LIST changes: +ELIQUIS5 MG PO; +MIDODRINE HCL5 MG PO; +PLAVIX75 MG PO
[2019-10-22 11:14] LABS: ANION GAP 12.6 mmol/L (8-16); CALCIUM 8.8 mg/dL (8.5-10.1); CARBON DIOXIDE 27.4 mmol/L (21.0-32.0); CREATININE - SERUM 8.8 mg/dL (0.6-1.3)
[2019-10-22 11:18] LABS: EOSINOPHILS 9.3 % (0-7); HEMATOCRIT 33.2 % (36.0-48.0); HEMOGLOBIN 10.4 g/dL (12-16); IMMATURE GRANULOCYTES 0.2 % (0-5); LYMPHOCYTES 23.9 % (15-50); MCH 31.3 pg (26.0-34.0); MCHC 31.3 g/dL (31.0-37.0); MONOCYTES 9.3 % (2-11); NEUTROPHILS 56.3 % (40-80); PLATELET COUNT 195 10x3/uL (130-400); RBC 3.32 10x6/uL (4.00-5.40); RDW 14.5 % (11.5-14.5); WBC 5.1 10x3/uL (4.8-10.8)
[2019-10-22 11:21] LABS: INR 1.27 (0.85-1.17); PROTIME 15.8 SECONDS (11.6-15.0)
[2019-10-22 12:00] VITALS: BP 95/63; BMI 36.1
[2019-10-22 12:02] LABS: HCG SERUM NEGATIVE (NEGATIVE)
--- NOTE | 2019-10-22 18:10 | NUR ---
1800 - PT READY FOR D/C FROM PHASE 1 PACU. NO BED CURRENTLY AVAILABLE, SWITCHING TO PHASE 2 PROTOCOL PENDING BED AVAILABILITY.
--- NOTE | 2019-10-22 18:23 | NUR ---
1812 - ATTEMPTED TO LOCATE PEDAL PULSES VIA DOPPLER. UNSUCCESSFUL. DR LAM AT BEDSIDE AND AWARE.
--- NOTE | 2019-10-22 18:38 | NUR ---
1832 - OK TO TRANSFER TO OUTPT PENDING AVAILABILITY OF MED II BED, PER DR LAM.
--- NOTE | 2019-10-22 19:35 | NUR ---
1924 REPORT PHONED TO RUFUS. PT'S SPOUSE BROUGHT PT FOOD.
--- NOTE | 2019-10-22 20:00 | NUR ---
I WAS REVIEWING PTS HOME MEDICATIONS BEFORE RESTARTING THEM ORDERED AND PT HAS TAKEN ALL OF HER NIGHT TIME MEDS RIGHT BEFORE I CAME INTO THE ROOM. ADVISED PT TO LET US PUT MEDS IN SAFE OR SEND THEM HOME. PT WILL SEND THEM HOME WITH SPOUSE.
[2019-10-22 20:30] VITALS: BP 90/56
[2019-10-22 23:00] VITALS: BP 133/70
[2019-10-23 00:31] VITALS: BP 90/56; BMI 36.7
[2019-10-23 04:23] VITALS: BP 91/65
--- NOTE | 2019-10-23 07:30 | NUR ---
A/A/OX4. DENIES ANY NEEDS AND NO REQUESTS VOICED. ASSESSMENT COMPLETED AND WILL CONTINUE POC. BED IN LOW POSITION AND CALL LIGHT IN REACH. PT HOPING TO BE DISCHARGED TODAY.
[2019-10-23 08:47] VITALS: BP 89/43
[2019-10-23 13:52] VITALS: Ht 162.6 cm; Wt 96.6 kg
--- NOTE | 2019-10-23 16:20 | NUR ---
ANABELL INSTRUCTIONS REVIEWED WITH PT AND VERBALIZES UNDERSTANDING WITHOUT ANY QUESTIONS. LEFT FLOOR VIA W/C WITH ALL PERSONAL BELONGINGS AND LEFT FACILITY VIA PRIVATE VEHICLE WITH HER .
[2019-10-23] MEDS ORDERED: BAYER CHEWABLE81 MG PO (16:35)
[2019-10-23 17:14] VITALS: BP 94/49
== END 2019-10-23 16:30 | disposition home or self-care (01) ==
LOC: D.OPS 10:45 → D.M2 18:01 → D.OPS 10-23 16:30
PROVIDERS: Anesthesiology; ATTEND Internal Medicine
DX: I87.1 Compression of vein (principal); N18.6 End stage renal disease; Z99.2 Dependence on renal dialysis; E11.22 Type 2 diabetes mellitus with diabetic chronic kidney disease; I70.213 Atherosclerosis of native arteries of extremities with intermittent claudication, bilateral legs; Z79.84 Long term (current) use of oral hypoglycemic drugs

== ENCOUNTER 2019-10-29 07:59 | Day surgery (SDC) | payer MEDICARE ==
[~2019-10-29] VITALS: Ht 162.6 cm; Wt 95.5 kg
--- NOTE | ~2019-10-29 | OP ---
PATIENT NAME: CARA LOVELL MEDICAL RECORD: [id number] :70 LOCATION:[facility] ADMISSION DATE: SURGEON: CHRISTINE LAM MD DATE OF OPERATION: 10/29/2019 PREOPERATIVE DIAGNOSES: End-stage renal disease, dependence on hemodialysis, thrombophilia, superior vena cava syndrome, end-stage dialysis access, and pain in right leg consistent with vascular insufficiency or arterial insufficiency following a recent declot procedure on a right thigh arteriovenous graft. POSTOPERATIVE DIAGNOSES: End-stage renal disease, dependence on hemodialysis, thrombophilia, superior vena cava syndrome, end-stage dialysis access, and pain in right leg consistent with vascular insufficiency or arterial insufficiency following a recent declot procedure on a right thigh arteriovenous graft. OPERATION PERFORMED: Fistulogram with ultrasound-guided access. SURGEON: Christine Lam MD ANESTHESIA: General. REFERRING PHYSICIAN: Dr. Walt Rocha of [facility] and Dr. Steve Graves of [place]. PREOPERATIVE NOTE: Ms. Lovell is an unfortunate 48-year-old -[place] female from [place], who has end-stage renal disease and is on dialysis in [place]. She has had numerous dialysis access failures. 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 She is presently dependent for dialysis on the left femoral tunneled dialysis catheter. I recently implanted an Artegraft loop AV graft in her right thigh based on the more distal superficial femoral artery and vein, and although it functioned well initially, it thrombosed and last week I performed a percutaneous mechanical thrombectomy and thrombolysis procedure. At that time, there was some evidence of small emboli in the superficial femoral artery. Postoperatively, the patient had initially cool limb, but it warmed up. She had no complaints of pain and was discharged from the hospital the following day. Since that time, she has had increasing of pain she says in her right leg, particularly in the macario area where she says she has throbbing discomfort. Her foot is warm. She has very poor pulses and the Doppler flow signals are decreased compared to a week ago, again consistent with an embolism or acute occlusion, but this certainly not typical for an acute clot. I plan to do a fistulogram today, but should allow us to image her superficial femoral artery. Note, she is on anticoagulants, Plavix, Eliquis and aspirin and probably will be able to be taken off at least the Eliquis and prepared for a standard aortography. DESCRIPTION OF PROCEDURE: Under general anesthesia in supine position, the patient was prepped and draped in sterile manner and the graft was accessed with ultrasound guidance with real time visualization of the needle and wire passing into the graft and permanent documentation and hard paper images were saved in the patient's chart. A 6-Hungarian introducer was placed and contrast injected. This revealed that there was actually excellent flow in the graft without stenosis of the venous or arterial anastomosis; however, there was a complete occlusion of the SFA OPERATIVE REPORT [id number] NATANLGANGELO Fenton immediately distal to the arterial anastomosis. I did do some selected views with a catheter in the proximal SFA. I was unable to turn it downward due to the geometry of the graft artery anastomosis and I saw that there was a very poor flow distal to the knee joint from collaterals. The hardware was removed and hemostasis obtained with a period of direct pressure and [id number] 4-0 Prolene suture and a sterile dressing was applied. I discussed the case with Dr. Guzman in interventional radiology and he thought that probably Sunday would be a good day for her to return as an outpatient to interventional radiology for arteriogram and revascularization probably of the right leg. We are stopping her Eliquis and starting her on Lovenox. She will continue Plavix and she will call me and come back to the hospital if her symptoms worsen. Otherwise, I do not think there is a problem in awaiting until Sunday. TRANSINT:[id number] Voice Confirmation ID: [id number] DOCUMENT ID: [id number] cc: CHRISTINE Stewart MD CC: [id number] DICTATION DATE: 11/11/19 1438 SPEECH AND DRAMA TEACHER: 11/11/19 1540 [facility] 10/29/19 [facility] [address] [place] [address]
[~2019-10-29 07:59] MED LIST changes: +BAYER CHEWABLE81 MG PO
[2019-10-29 08:27] LABS: BASOPHILS 0.5 % (0-2); EOSINOPHILS 6.9 % (0-7); HEMATOCRIT 26.3 % (36.0-48.0); HEMOGLOBIN 8.4 g/dL (12-16); IMMATURE GRANULOCYTES 0.2 % (0-5); LYMPHOCYTES 15.8 % (15-50); MCH 31.2 pg (26.0-34.0); MCHC 31.9 g/dL (31.0-37.0); MCV 97.8 fL (80.0-100.0); MEAN PLATELET VOLUME 10.2 fL (7.4-10.4); MONOCYTES 9.2 % (2-11); NEUTROPHILS 67.4 % (40-80); PLATELET COUNT 176 10x3/uL (130-400); RBC 2.69 10x6/uL (4.00-5.40); RDW 14.4 % (11.5-14.5); WBC 6.2 10x3/uL (4.8-10.8)
[2019-10-29 08:37] LABS: ANION GAP 19.5 mmol/L (8-16); CALCIUM 9.3 mg/dL (8.5-10.1); CARBON DIOXIDE 23.7 mmol/L (21.0-32.0); CREATININE - SERUM 10.2 mg/dL (0.6-1.3); POTASSIUM - SERUM 4.2 mmol/L (3.5-5.1)
[2019-10-29 08:50] LABS: INR 1.58 (0.85-1.17); PROTIME 18.7 SECONDS (11.6-15.0)
[2019-10-29 08:58] VITALS: BP 118/60; Ht 162.6 cm; Wt 95.5 kg
--- NOTE | 2019-10-29 09:04 | NUR ---
DR. LAM ORDERED FOR PT TO TAKE HER ELIQUIS, PLAVIX, AND MIDODRINE. PT TOOK THOSE MEDS PER DR. LAM'S ORDER IN ADDITION TO HER PREOP MEDS
[2019-10-29 09:06] LABS: HCG SERUM NEGATIVE (NEGATIVE)
--- NOTE | 2019-10-29 15:39 | NUR ---
1345 ULTRASOUND COMPLETED. AWAITING RESULTS FOR FURTHER ORDERS.
--- NOTE | 2019-10-29 15:41 | NUR ---
1440 HEMOSPLIT FLUSHED WITH HEPARIN. ALL DC INSTRUCTIONS GIVEN. VOICES UNDERSTANDING. DOING WELL. NO C/O PAIN. TAKEN OUT VIA W/C TO CAR WITH . ADVISED TO CALL OR COME BACK IF ANY PROBLEMS AND KNOWS TO RETURN ON SUNDAY FOR IR.
== END 2019-10-29 14:40 | disposition home or self-care (01) ==
LOC: D.OPS 07:59
PROVIDERS: Anesthesiology; Surgery; ATTEND Internal Medicine Nephrology
DX: Z99.2 Dependence on renal dialysis (principal); I70.213 Atherosclerosis of native arteries of extremities with intermittent claudication, bilateral legs; E11.9 Type 2 diabetes mellitus without complications; Z79.84 Long term (current) use of oral hypoglycemic drugs; I87.1 Compression of vein

== ENCOUNTER 2019-11-04 10:19 | Outpatient (CLI) | payer MEDICARE ==
[~2019-11-04] VITALS: Ht 162.6 cm; Wt 95.5 kg
--- NOTE | ~2019-11-04 | HEMODYNAMI ---
PATIENT:CARA GAMA MEDICAL RECORD: [id number] : 70 LOCATION:[facility] ADMISSION DATE: 11/04/19 Generatedon:11/04/201915:16 Patient name: CARA GAMA Patient #: [id number] SSN: D OB: 1970 Date of study: 11/04/2019 Page: Of Hemodynamic Procedure Report Patient Data Patient Demographics Procedure consent was obtained First Name: CARA Gender: Female Last Name: NATAN : 1970 Middle Initial: L Age: 48 year(s) Patient #: [id number] Race: Black Additional ID: [id number] Contact details Address: [place] [address] State: [place] City: [place] Zip code: [address] Past Medical History Allergies Allergen Reaction Date Comments Reported Other allergy 04/28/2019 hydrocodone Other allergy 11/04/2019 hydrocodone Admission Admission Data Admission Date: 11/04/2019 Admission Time: 10:19 Procedure Procedure Types Cath Procedure Peripheral Cath Diagnostic Procedure Abd/Extremity Extremities Right Lower Ext Arterio Procedure Description Procedure Date Procedure Date: 11/04/2019 Procedure Start Time: 14:28 Procedure Staff Name Function Maryam Erickson MD Performing Physician RAGHAV KINNEY RT Monitor Chema Looney RT Scrub Loyda Samuels RN Nurse Jaymie Rubio RN Nurse Jairo Oneal CRNA Additional personnel Procedure Data Cath Procedure Fluoroscopy Diagnostic fluoroscopy Total fluoroscopy Time: 9.3 time: 9.3 min min Contrast Material Contrast Material Type Amount (ml) Isovue 300 100 Entry Location Entry Primary Successful Side Size (Fr) Upsize Upsize Entry Closure S uccessful Closure Location 1 (Fr) 2 (Fr) Remarks Device Remarks Femoral Left 6 Fr 6 Fr Exoseal artery Mid-Length Short Procedure Medications Medication Administration Route Dosage Heparin Flush Bag added to field 3 bags (1000units/500ml NS) Lidocaine 1% added to field 20 Heparin Bolus I.V. 5000 units Hemodynamics Rest Heart Rate: 85 (bpm) Snapshots Pre Cath Intra NCS Post Cath Vital Signs Time Heart Resp SPO2 etCO2 NIBP (mmHg) Rhythm Pain Sedation Rate (ipm) (%) (mmHg) Status Level (bpm) 13:44:15 75 4 100 35.2 130/80(108) NSR 0 (11) 10(A) , No pain 13:48:33 69 14 100 32.9 118/70(96) NSR 0 (11) 10(A) , No pain 13:52:49 67 21 25.4 114/65(88) NSR 0 (11) 10(A) , No pain 13:57:03 68 18 99 25.4 112/65(91) NSR 0 (11) 10(A) , No pain 14:01:15 69 16 100 32.9 110/66(95) NSR 0 (11) 10(A) , No pain 14:05:29 71 18 100 33.6 101/63(80) NSR 0 (11) 10(A) , No pain 14:09:39 73 18 100 34.4 102/64(83) NSR 0 (11) 10(A) , No pain 14:13:53 76 17 100 34.4 105/52(80) NSR 0 (11) 10(A) , No pain 14:18:05 79 17 100 36.7 98/60(78) NSR 0 (11) 10(A) , No pain 14:22:09 82 18 100 29.9 80/70(75) NSR 0 (11) 10(A) , No pain 14:26:10 84 17 100 41.9 95/58(70) NSR 0 (11) 10(A) , No pain 14:30:22 87 17 41.9 91/48(65) NSR 0 (11) 10(A) , No pain 14:34:32 89 17 100 44.8 85/46(70) NSR 0 (11) 10(A) , No pain 14:38:40 86 17 100 44.1 93/50(72) NSR 0 (11) 10(A) , No pain 14:42:54 88 17 100 44.8 99/41(78) NSR 0 (11) 10(A) , No pain 14:47:10 89 17 100 41.9 93/41(69) NSR 0 (11) 10(A) , No pain 14:51:20 89 19 100 44.1 81/49(72) NSR 0 (11) 10(A) , No pain 14:55:24 91 19 100 38.9 97/52(68) NSR 0 (11) 10(A) , No pain 14:59:33 89 20 100 35.9 102/58(78) NSR 0 (11) 10(A) , No pain 15:03:46 86 20 100 36.7 98/57(81) NSR 0 (11) 10(A) , No pain 15:07:51 81 20 100 34.4 107/70(87) NSR 0 (11) 10(A) , No pain 15:12:03 81 18 100 29.9 100/62(87) NSR 0 (11) 10(A) , No pain Medications Time Medication Route Dose Verified Delivered Reason Notes Effectiveness by by 14:20:30 Heparin Flush added 3 M J Long M J Long used for Bag to bags MD PEMBERTON procedure (1000units/500ml field NS) 14:20:45 Lidocaine 1% added 20ml M J Long M J Long used for to vial MD P[place] procedure field 14:45:16 Heparin Bolus I.V. 5000 M J Long Loyda for units MD Arvind WEBSTER anticoagulation Procedure Log Time Note 13:40:45 Loyda Samuels RN sent for patient. Start room use. 13:42:47 Time tracking: Regular hours (M-F 7:00 - 5:00) 13:42:51 Plan of Care:Hemodynamics will remain stable., Cardiac rhythm will remain stable., Comfort level will be maintained., Respiratory function will remain adequate., Patient/ family verbilizes understanding of procedure., Procedure tolerated without complication., Recovers from procedure without complications.. 13:42:56 Patient received from Outpatients to IR Alert and oriented. Tansferred to table in Supine position. 13:42:58 Signed procedure consent form obtained from patient. 13:42:59 Warm blankets applied, and jaclyn hugger turned on for patient comfort. 13:43:00 Correct patient and procedure confirmed by team. 13:43:00 ECG and BP/O2 sat monitors applied to patient. 13:43:00 Vital chart was started 13:43:01 Baseline sample Acquired. 13:43:03 Full Disclosure recording started 13:43:03 - 13:43:09 H&P Date Dictated: 11/04/2019 H&P Addendum completed by physician on day of procedure. (MUST COMPLETE FOR ALL OUTPATIENTS). 13:43:10 Pre-procedure instructions explained to patient. 13:43:11 Pre-op teaching completed and patient verbalized understanding. 13:43:12 Family unavailable. 13:43:14 Patient NPO since Midnight. 13:43:32 Patient allergic to Other allergyhydrocodone 13:43:35 Is the patient allergic to Iodine/contrast media? No. 13:43:44 - 13:43:47 ----Please see anethesia note for pre-sedation anesthesia assessment.---- 13:44:28 IV patent on arrival in left hemosplit groin with 0.45%NaCl at KVO. 13:44:32 Pre procedure: right dorsailis pedis pulse 0-Absent 13:44:35 Pre procedure: left dorsailis pedis pulse Doppler 13:44:39 Pre procedure: right posterior tibial pulse Doppler 13:44:43 Pre procedure: left posterior tibial pulse Doppler 13:44:47 Left groin area was prepped with chlora-prep and draped in sterile fashion 13:44:49 Alarms reviewed by R. N. 13:44:49 Sharps counted by scrub and verified by R.N. 13:44:55 Use device set IR Diagnostic 13:44:58 ACIST Syringe (99634) opened to sterile field. 13:44:58 ACIST Hand Control (94884) opened to sterile field. 13:44:58 ACIST Manifold (01758) opened to sterile field. 13:44:59 Bag Decanter (2001S) opened to sterile field. 13:44:59 Sterile Angiographic Pack opened to sterile field. 13:45:01 Tegaderm 4 x 4 (1626W) opened to sterile field. 13:45:26 SHEATH 5FR Swisher (OIC137) opened to sterile field. 13:45:26 MICROPUNCTURE 4FR Cook (W01915) opened to sterile field. 13:45:27 DOC .035 wire (R71735) opened to sterile field. 13:45:33 - 14:10:07 Angiodynamics Omniflush 5Fr 65cm (06769905) opened to sterile field. 14:10:12 TUBING High Pressure Extension Tubing (Hare) (JK6574O) opened to sterile field. 14:14:56 Physician arrived 14:17:29 Left groin site verified by team. 14:20:30 Heparin Flush Bag (1000units/500ml NS) 3 bags added to field was administered by Maryam Erickson MD; used for procedure; Verbal order read back and verified. 14:20:45 Lidocaine 1% 20ml vial added to field was administered by Maryam Erickson MD; used for procedure; Verbal order read back and verified. 14:23:26 --------ALL STOP TIME OUT------ 14:23:27 Final Timeout: patient, procedure, and site verified with staff and physician. All members of the team are in agreement. 14:27:48 Procedure started. 14:28:11 Local anesthetic to left femerol artery with Lidocaine 1% by Maryam Erickson MD.INITIAL ACCESS ONLY 14:28:13 Access obtained with 4Fr micropunture. 14:31:01 A 6 Fr Mid-Length sheath was inserted into the Left Femoral artery 14:31:08 SHEATH 6FR X 25CM RADIOPAUQE PINNICALE (RZR887) opened to sterile field . 14:35:57 TORQUE DEVICE PLASTIC .038 ( TD01) opened to sterile field. 14:35:58 GLIDE WIRE .035 180CM STRAIGHT (KH7430) opened to sterile field. 14:36:49 GLIDE CATHETER 5FR COBRA 100cm (CG503) opened to sterile field. 14:41:41 CXI SUPPORT .035 135 CM STR catheter (G40460) opened to sterile field. 14:41:42 SHEATH 6FR Destination (RSR01) opened to sterile field. 14:45:16 Heparin Bolus 5000 units I.V. was administered by Loyda Samuels RN; for anticoagulation; Verbal order read back and verified. 14:56:35 Place stent Inflation Number: 1 A Everflex 6 x 120 x 120 ([id number]) Stent was prepped and advanced across the Undefined1 . The stent was deployed. 14:59:22 Inflate balloon Inflation number: 1 A Evercross 5 x 100 x 135 Balloon ([id number]) was prepped and advanced across the Undefined1 , then inflated . 14:59:49 INFLATOR BasixTOUCH (JA7637) opened to sterile field. 15:01:45 SHEATH 6FR Brite Tip 35cm (165716V) opened to sterile field. 15:05:15 EXOSEAL 6Fr (EX600) opened to sterile field. 15:05:34 Sheath upsized to a 6 Fr Short. 15:05:34 Sheath removed intact; hemostasis achieved with Exoseal to the Left Femoral artery. 15:08:51 Procedure ended.(Physican Out) 15:09:06 Fluoroscopy time 09.30 minutes. 15:09:13 Dose Area Product 328 mGy/cm. 15:09:17 Contrast amount:Isovue 300 100ml. 15:09:20 Insertion/operative site no bleeding no hematoma. 15:09:29 Femstop placed over the left femerol artery. Hemostasis achieved. 15:13:00 Post procedure instruction explained to patient.Patient verbalizes understanding. 15:13:14 Procedure and supply charges have been captured, reviewed, submitted an d are correct. 15:15:25 Vital chart was stopped 15:15:33 Patient transfered to Outpatients with Stretcher. Intervention Summary Intervention Notes Time ActionType Lesion and Equipment Used Action# Pressure Duration Attributes 14:56:35 Place stent Undefined1 Everflex 6 x 1 0 00:00 100 x 120 Stent 14:59:22 Inflate Undefined1 Evercross 5 x 1 0 00:00 balloon 100 x 135 Balloon ([id number]) Device Usage Item Name Manufacture Quantity Catalog Number [facility] Minimal Lot# / Charge Number Stock Stock Serial# Code ACIST Syringe Acist Medical 1 64456 782094 758627 84614 4 20 (73282) Systems Inc ACIST Hand Acist Medical 1 63406 874571 245581 68065 5 5 Control (12815) Systems Inc ACIST Manifold Acist Medical 1 91532 208709 644704 43277 1 5 (19351) Systems Inc Bag Decanter Microtek 1 2001S 441739 16771 64610 8 5 (2001S) Medical Inc. Sterile Cardinal 1 [id number] 830586 62330 2 5 Angiographic Health Pack Tegaderm 4 x 4 3M 1 1626W 949173 582499 49893 0 5 (1626W) SHEATH 5FR Terumo 1 ZHP361 940514 249564 69638 7 5 Swisher (PAZ944) MICROPUNCTURE [facility] 1 Z90168 627884 411921 88985 9 5 4FR Meedor (J73520) DOC .035 wire [facility] 1 H58876 095169 28345 3 5 (O22970) Angiodynamics Angiodynamics 1 30300329 250801 976216 95950 7 5 Omniflush 5Fr 65cm (57812003) TUBING [facility] 1 RY4744L 629062 51337 22729 5 10 Pressure Extension Tubing (Hare) (AA7063U) SHEATH 6FR X Terumo 1 IDB646 727933 055534 75378 4 1 25CM RADIOPAUQE PINNICALE (LCL295) TORQUE DEVICE [place] 1 TD01 750552 475673 44069 4 5 PLASTIC .038 ( Scientific TD01) GLIDE WIRE .035 Terumo 1 MJ8121 895250 65096 9 5 180CM STRAIGHT (PA4342) GLIDE CATHETER Terumo 1 CG503 320864 37207 5 5 5FR COBRA 100cm (CG503) CXI SUPPORT Cook Medical 1 J82652 795491 444562 79846 2 5 .035 135 CM STR catheter (V90621) SHEATH 6FR Terumo 1 RSR01 963505 98306 99842 0 5 Destination (RSR01) Everflex 6 x Medtronic 1 [id number] 651486 858356 40888 8 1 v447890 100 x 120 Stent j112231 Evercross 5 x Medtronic 1 [id number] 121958 417254 05702 8 5 100 x 135 Balloon ([id number]) INFLATOR [facility] 1 UH1023 915818 286511 75104 7 5 BasixTOUCH (XI4904) SHEATH 6FR Cardinal 1 578737D 606291 248772 21966 2 1 Brite Tip 35cm Health (351238S) EXOSEAL 6Fr Cardinal 1 EX600 711800 341906 04937 3 10 (EX600) Health Signature Audit [place] Stage Time Signature Unsigned Intra-Procedure 11/04/2019 RAGHAV KINNEY RT 3:16:07 PM (R) [facility] [address] [place] [address]
[2019-11-04 10:47] LABS: BASOPHILS 0.6 % (0-2); EOSINOPHILS 12.5 % (0-7); HEMOGLOBIN 8.8 g/dL (12-16); IMMATURE GRANULOCYTES 0.2 % (0-5); LYMPHOCYTES 22.5 % (15-50); MCH 30.8 pg (26.0-34.0); MCHC 31.4 g/dL (31.0-37.0); MCV 97.9 fL (80.0-100.0); MEAN PLATELET VOLUME 10.1 fL (7.4-10.4); NEUTROPHILS 55.2 % (40-80); RBC 2.86 10x6/uL (4.00-5.40); RDW 13.7 % (11.5-14.5)
[2019-11-04 10:53] LABS: PLATELET COUNT 233 10x3/uL (130-400)
[2019-11-04 10:58] LABS: INR 1.08 (0.85-1.17)
[2019-11-04 10:59] LABS: APTT 40.1 SECONDS (22.8-39.4)
[2019-11-04 11:01] LABS: ANION GAP 13.3 mmol/L (8-16); CARBON DIOXIDE 25.8 mmol/L (21.0-32.0); CREATININE - SERUM 6.8 mg/dL (0.6-1.3); POTASSIUM - SERUM 4.1 mmol/L (3.5-5.1)
[2019-11-04 11:06] LABS: HCG SERUM NEGATIVE (NEGATIVE)
[2019-11-04 11:14] VITALS: BP 94/68; Ht 162.6 cm; Wt 95.5 kg
--- NOTE | 2019-11-04 11:46 | NUR ---
PT UNSURE OF INSTRUCTIONS REGARDING MEDICATIONS. PT TOOK ASA AND PLAVIX 224 AM AND ELIQUIS 2 AM. ATTEMPTS HAVE BEEN MADE TO REACH SPECIALS NURSE TO ASK ABOUT WHETHER OR NOT SHE NEEDS TO TAKE THOSE MEDS TODAY.
--- NOTE | 2019-11-04 17:38 | NUR ---
1600 RECIEVED REPORT FROM [facility]. PT FLAT IN BED X4HRS. DRESSING TO LEFT GROIN. DOPPLER PULSES ON RIGHT DORSALIS PEDIS AND POSTERIOR TIBIA. PARTIAL AMPUTATION OF LEFT FOOT NOTED. PERMA CATH TO LEFT LEG. PT HAS NO IV SITE AND REFUSED ANYTHING TO EAT OR DRINK. DENIES PAIN. REQUESTED I ELEVATE LEFT LEG. SMALL AMT OF SWELLING.
--- NOTE | 2019-11-04 19:43 | NUR ---
1914 LEFT GROIN DRESSING WITH SMALL AMT OF DRAINGAGE NOTED. AREA SOFT. DOPPPLER PULSES. INSTRUCTIONS GIVEN.
== END 2019-11-04 19:40 | disposition home or self-care (01) ==
LOC: D.OPS 10:19 → D.SP 10:19 → D.RAD 13:00 → D.OPS 19:40
PROVIDERS: Radiology Vascular & Interventional Radiology; ATTEND Surgery
DX: N18.6 End stage renal disease (principal); T85.9XXA Unspecified complication of internal prosthetic device, implant and graft, initial encounter; I73.9 Peripheral vascular disease, unspecified

== ENCOUNTER 2019-11-25 06:02 | Day surgery (SDC) | payer MEDICARE ==
[~2019-11-25] VITALS: Ht 162.6 cm; Wt 95.3 kg
[2019-11-25 06:57] LABS: BASOPHILS 0.4 % (0-2); EOSINOPHILS 9.3 % (0-7); HEMATOCRIT 32.6 % (36.0-48.0); IMMATURE GRANULOCYTES 0.1 % (0-5); LYMPHOCYTES 22.8 % (15-50); MCH 30.8 pg (26.0-34.0); MCHC 30.7 g/dL (31.0-37.0); MCV 100.3 fL (80.0-100.0); MEAN PLATELET VOLUME 10.3 fL (7.4-10.4); MONOCYTES 5.6 % (2-11); NEUTROPHILS 61.8 % (40-80); PLATELET COUNT 212 10x3/uL (130-400); RBC 3.25 10x6/uL (4.00-5.40); RDW 13.7 % (11.5-14.5)
[2019-11-25 07:09] VITALS: Ht 162.6 cm; Wt 95.3 kg
[2019-11-25 07:11] LABS: HCG SERUM NEGATIVE (NEGATIVE)
[2019-11-25 07:13] LABS: ANION GAP 15.4 mmol/L (8-16); CALCIUM 9.4 mg/dL (8.5-10.1); CARBON DIOXIDE 24.3 mmol/L (21.0-32.0); CREATININE - SERUM 6.4 mg/dL (0.6-1.3); POTASSIUM - SERUM 4.7 mmol/L (3.5-5.1)
[2019-11-25 07:16] LABS: INR 1.05 (0.85-1.17); PROTIME 13.6 SECONDS (11.6-15.0)
--- NOTE | 2019-11-26 10:15 | OP ---
PATIENT NAME: CARA LOVELL MEDICAL RECORD: [id number] :70 LOCATION:D.[facility] ADMISSION DATE: SURGEON: CHRISTINE LAM MD DATE OF OPERATION: 11/25/2019 PREOPERATIVE DIAGNOSES: End-stage renal disease and dependence on hemodialysis and exposed infected PTFE vascular graft in left thigh, remnant of old thrombosed loop AV graft. POSTOPERATIVE DIAGNOSES: End-stage renal disease and dependence on hemodialysis and exposed infected PTFE vascular graft in left thigh, remnant of old thrombosed loop AV graft. OPERATION PERFORMED: Excision of infected vascular graft, left thigh. SURGEON: Christine Lam MD ANESTHESIA: General with LMA per CONTINUOUS IMPROVEMENT MANAGER. REFERRING PHYSICIAN: Dr. Graves of [place]. PREOPERATIVE NOTE: Ms. Lovell is a 48-year-old -[place] female who has end-stage renal disease and dependence on hemodialysis with a history of numerous failed prior vascular accesses. She is now catheter dependent with a left femoral TDC. She has superior vena cava syndrome and no access to the right atrium from the upper extremities or neck at this time. She has a vascular graft in the left thigh, which has actually eroded through the skin and this remaining section of PTFE graft needs to be excised. It is not at this time, purulent or draining, but instead at least externally is dry and desiccated. At this time, she is not ill. No signs of sepsis, bacteremia, etc. I plan to remove the graft or at least as much as I can without disturbing or damaging the existing left femoral tunneled dialysis catheter. She may in the future have to have the remaining PTFE taken off the left femoral artery, but hopefully by whenever that is she will have other access for dialysis. DESCRIPTION OF PROCEDURE: Under general anesthesia, the patient was placed in supine position, prepped and draped in sterile manner. An incision was made over the left thigh and extended laterally in a fairly linear horizontal manner and the underlying section of the graft was exposed and dissected from the surrounding tissues. Hemostasis was obtained with electrocautery. The skin opening orifice around the exposed graft was totally excised. I did not follow the graft up to the arterial anastomosis, but instead amputated it above the skin incision level at which there did not seem grossly to be signs of infection. The excised segment of graft itself was sent for culture. The wound was infiltrated with 0.25% Marcaine with epinephrine. The wound was closed fairly loosely with interrupted inverted 3-0 Vicryl and widely spaced skin marla. The wound was then dressed with Maxorb AG and Tegaderm with Cavilon skin prep and a new CVL dressing applied to the tunneled dialysis catheter. This included a chlorhexidine Biopatch. I do not need to see Ms. Lovell back in my office unless there is a problem or complication. I will ask her to change the dressing in the next 2-3 days and clean the wound area with Hibiclens and redressed it with clean, dry sterile gauze. The marla should be removed either in dialysis in [place] or perhaps at her PCP's office in approximately 1 week. She has an appointment to see OPERATIVE REPORT [id number] NATANCARA in [place] on, I believe 12/22/2019 and hopefully when she returns from [place], she will have a new right internal jugular tunneled dialysis catheter. The patient was given a gram of Ancef at the beginning of surgery today and I plan to continue her on doxycycline 100 mg daily for the next 5 days, pending results of today's culture. No other new prescriptions are given. She is to continue her same home medications and dialysis schedule. In the future, I believe she will be a candidate for resuming peritoneal dialysis, which she had done successfully in the past, but had to stop due to persistent pleural effusion. I think that a thoracoscopic diaphragm or ceiling procedure along with pleurodesis could be done at the time of peritoneal dialysis catheter implantation. I have not done that procedure, but I have read of success with that. Blood loss today was about 2 cc. None was replaced. Sponges, instruments, and needles were accounted for. No drain was used. No surgical specimen was submitted for histopathology. TRANSINT:[id number] Voice Confirmation ID: [id number] DOCUMENT ID: [id number] cc: Dr. Church [phone] Dr. Graves [place] [phone] [facility] [phone] CHRISTINE LAM MD at 1015 CC: DR. CHURCH and DR. GRAVES [phone] DICTATION DATE: 11/25/19 1001 INSURANCE AGENCY MANAGER: 11/25/19 1131 [facility] 11/25/19 [facility] [address] [id number]
== END 2019-11-25 11:25 | disposition home or self-care (01) ==
LOC: D.OPS 06:02
PROVIDERS: Anesthesiology; ATTEND Internal Medicine Nephrology
DX: N18.6 End stage renal disease (principal); Z99.2 Dependence on renal dialysis; T82.7XXA Infection and inflammatory reaction due to other cardiac and vascular devices, implants and grafts, initial encounter; I87.1 Compression of vein